=== PATIENT | female | born 1975 | race Caucasian/White ===

== ENCOUNTER → 2020-01-20 13:46 | Outpatient (CLI) | payer OTHER, SELFPAY ==
--- NOTE | ~2020-01-20 | MM_ITS ---
EXAMINATION: MM screening liliana BI w eduin HISTORY: Screening mammogram TECHNIQUE: Craniocaudal and mediolateral oblique 3-D tomosynthesis images were obtained and synthetic 2-D images were generated. CAD analysis was submitted and interpreted. COMPARISON: 12/27/2018, 12/07/2017 bilateral digital screening mammogram examinations 10/09/2016 diagnostic left digital mammogram and limited left breast ultrasound 09/25/2016, 09/19/2015 bilateral digital screening mammogram examinations. BREAST PARENCHYMAL COMPOSITION: There are scattered areas of fibroglandular density. FINDINGS: There is an approximately 5 x 8.7 mm asymmetric opacity in the lower left breast posteriorl y on screening MLO view. Diagnostic left mammogram is recommended, with ultrasound if required. Otherwise there is no evidence of suspicious mass, calcification, or architectural distortion to sugg est malignancy in either breast. There has been no suspicious interval change. IMPRESSION: 1. 5 x 8.7 mm asymmetry in the posterior lower left breast on screening MLO view 2. Diagnostic left mammogram is recommended, with ultrasound if required Reviewed, dictated and finalized at location A. ENT OFFICE REP IMPRESSION: 1. 5 x 8.7 mm asymmetry in the posterior lower left breast on screening MLO vie w 2. Diagnostic left mammogram is recommended, with ultrasound if required
== END ==
PROVIDERS: PCP Family Medicine; Visit Provider Nurse Practitioner
DX: Z12.31 Encounter for screening mammogram for malignant neoplasm of breast (principal); R92.8 Other abnormal and inconclusive findings on diagnostic imaging of breast
CPT/HCPCS: 77063; 77067

== ENCOUNTER → 2020-02-14 08:43 | Outpatient (CLI) | payer OTHER, SELFPAY ==
--- NOTE | ~2020-02-14 | MMUS_ITS ---
EXAMINATION: MM diagnostic mammo unilat LT, US breast LT limited HISTORY: Follow-up left breast asymmetry TECHNIQUE: Additional 3-D tomosynthesis images of the left breast were performed and synthetic 2-D im ages were generated. CAD analysis was submitted and interpreted. High resolution left breast ultrasou nd was performed. COMPARISON: Comparison to multiple prior studies sequentially, with oldest reviewed study dated 04/2015. BREAST PARENCHYMAL COMPOSITION: The breasts are heterogenously dense, which may obscure small masses. FINDINGS: MAMMOGRAPHIC FINDINGS: Focal asymmetry inferiorly in the left breast is persistent, although less dense with spot compressio n views. No discrete mass, architectural distortion or cluster of calcifications. ULTRASOUND: Limited left breast ultrasound: 9:00, 9 cm from the nipple, there is a 4 mm cyst. No other discrete s olid or cystic mass. IMPRESSION: 1. Probable benign findings of the left breast. 2. Recommend 6 month follow-up diagnostic left mammogram and ultrasound recommended BI-RADS category 3, probably benign findings. Reviewed, dictated and finalized at location A. ILER IMPRESSION: 1. Probable benign findings of the left breast. 2. Recommend 6 month follow-up diagnostic left mammogram and ultrasound recomme nded BI-RADS category 3, probably benign findings.
== END ==
PROVIDERS: PCP Family Medicine; Visit Provider Obstetrics & Gynecology Gynecology
DX: R92.8 Other abnormal and inconclusive findings on diagnostic imaging of breast (principal)
CPT/HCPCS: 76642; 77065

== ENCOUNTER → 2020-08-16 09:08 | Outpatient (CLI) | payer OTHER, SELFPAY ==
--- NOTE | ~2020-08-16 | MM_ITS ---
EXAMINATION: MM diagnostic liliana LT w eduin HISTORY: Follow-up left breast asymmetry TECHNIQUE: Additional 3-D tomosynthesis images of the left breast were performed and synthetic 2-D im ages were generated. CAD analysis was submitted and interpreted. COMPARISON: Comparison to multiple prior studies sequentially, with oldest reviewed study dated 09/25. BREAST PARENCHYMAL COMPOSITION: Breast composed of scattered areas of fibroglandular density. FINDINGS: No suspicious masses, calcifications or architectural distortion in the left breast to sugg est malignancy. Left breast asymmetry inferiorly is unchanged. IMPRESSION: 1. No mammographic evidence for malignancy in the left breast. 2. Routine yearly screening mammogram and regular clinical breast examination are recommended. BI-RADS Category 2: Benign finding(s). Reviewed, dictated and finalized at location A. IMPRESSION: 1. No mammographic evidence for malignancy in the left breast. 2. Routine yearly screening mammogram and regular clinical breast examination a re recommended. BI-RADS Category 2: Benign finding(s).
== END ==
PROVIDERS: PCP Family Medicine; Visit Provider Obstetrics & Gynecology Gynecology
DX: R92.8 Other abnormal and inconclusive findings on diagnostic imaging of breast (principal)
CPT/HCPCS: 77061; 77065; G0279

== ENCOUNTER → 2021-04-13 09:14 | Outpatient (CLI) | payer OTHER, SELFPAY ==
--- NOTE | ~2021-04-13 | US_ITS ---
EXAMINATION: US thyroid EXAM DATE: 04/13/2021 09:37 INDICATION: Thyroid nodule. TECHNIQUE: Multiple grayscale and Doppler images of the thyroid were obtained (by a technologist who performed the scan) and subsequently reviewed. Individual nodules and recommendations may be reporte d in accordance with TI-RADS system as designated by the 2017 ACR White Paper TI-RADS committee. The re is no prior study for comparison. FINDINGS: The right thyroid lobe measures 4.9 x 2.0 x 1.9 cm, the left measuring 4.3 x 1.9 x 1.9 cm. These dime nsions are mildly enlarged. Mildly heterogeneous thyroid echogenicity with expected amount of vascula rity. There is a right thyroid lobe hypervascular nodule measuring 1.1 x 0.8 x 0.8 cm, solid (2 points), hy poechoic (2 points), wider than tall, smooth well defined margin, without echogenic foci, category TR 4 for this nodule. One-year follow-up for this category/size indicated. IMPRESSION: 1. Mild terminale. 2. Right thyroid lobe nodule; one-year follow-up ultrasound recommended. Reviewed, dictated and finalized at location A. R FISHER
== END ==
PROVIDERS: Visit Provider Nurse Practitioner
DX: E04.1 Nontoxic single thyroid nodule (principal)
CPT/HCPCS: 76536

== ENCOUNTER → 2021-06-11 15:08 | Outpatient (CLI) | payer OTHER, SELFPAY ==
--- NOTE | ~2021-06-11 | MM_ITS ---
EXAMINATION: MM screening liliana BI w eduin HISTORY: Screening TECHNIQUE: Craniocaudal and mediolateral oblique 3-D tomosynthesis images were obtained and synthetic 2-D images were generated. CAD analysis was submitted and interpreted. COMPARISON: Comparison to multiple prior studies sequentially, with oldest reviewed study dated 11/17. BREAST PARENCHYMAL COMPOSITION: There are scattered areas of fibroglandular density. FINDINGS: There are developing nodular asymmetries laterally in the right breast on CC view. The left breast is stable without evidence for malignancy. IMPRESSION: 1. Developing nodular asymmetries laterally in the right breast on CC view only. 2. Additional mammographic views and possible breast ultrasound are recommended. BI-RADS Category 0: Incomplete: Needs additional imaging evaluation. Reviewed, dictated and finalized at location A. IMPRESSION: 1. Developing nodular asymmetries laterally in the right breast on CC view only . 2. Additional mammographic views and possible breast ultrasound are recommended . BI-RADS Category 0: Incomplete: Needs additional imaging evaluation.
== END ==
PROVIDERS: PCP Family Medicine; Visit Provider Nurse Practitioner
DX: Z12.31 Encounter for screening mammogram for malignant neoplasm of breast (principal); R92.8 Other abnormal and inconclusive findings on diagnostic imaging of breast
CPT/HCPCS: 77063; 77067

== ENCOUNTER → 2021-06-25 09:04 | Outpatient (CLI) | payer OTHER, SELFPAY ==
--- NOTE | ~2021-06-25 | MMUS_ITS ---
EXAMINATION: MM diagnostic liliana RT w eduin, US breast RT limited HISTORY: Follow-up right breast asymmetry TECHNIQUE: Additional 3-D tomosynthesis images of the right breast were performed and synthetic 2-D i mages were generated. CAD analysis was submitted and interpreted. High resolution Limited right breas t ultrasound was performed. COMPARISON: Comparison to multiple prior studies sequentially, with oldest reviewed study dated 11/17. BREAST PARENCHYMAL COMPOSITION: Breast composed of scattered areas of fibroglandular density FINDINGS: MAMMOGRAPHIC FINDINGS: There are no suspicious masses, calcifications or architectural distortion in the right breast to sug gest malignancy. ULTRASOUND: Limited right breast ultrasound: Normal heterogeneous echotexture without focal solid or cystic mass. IMPRESSION: 1. No evidence for malignancy in the right breast. 2. Routine yearly screening mammogram and regular clinical breast examination are recommended. BI-RADS Category 1: Negative Reviewed, dictated and finalized at location A. IMPRESSION: 1. No evidence for malignancy in the right breast. 2. Routine yearly screening mammogram and regular clinical breast examination a re recommended. BI-RADS Category 1: Negative
== END ==
PROVIDERS: PCP Family Medicine; Visit Provider Obstetrics & Gynecology Gynecology
DX: R92.8 Other abnormal and inconclusive findings on diagnostic imaging of breast (principal)
CPT/HCPCS: 76642; 77061; 77065; G0279

== ENCOUNTER → 2022-10-27 13:15 | Outpatient (CLI) | payer OTHER, SELFPAY ==
--- NOTE | ~2022-10-27 | US_ITS ---
EXAMINATION: US thyroid DATE: 10/27/2022 13:35 INDICATION: Thyroid nodule. TECHNIQUE: Multiple ultrasound images of the thyroid were obtained. COMPARISON: Ultrasound 04/13/2021 FINDINGS: The right thyroid lobe measures 5.8 x 1.9 x 2.2 cm. The left thyroid lobe measures 4.7 x 1.8 x 2.1 c m. In the right thyroid lobe, there is a 12 mm solid, hypoechoic, wider than tall nodule with smooth margin without echogenic foci (TI-RADS TR4), stable from 04/13/21. In the right thyroid lobe, there i s a 7 mm solid, hypoechoic, wider than tall nodule with smooth margin without echogenic foci (TR4). IMPRESSION: 1. Thyroid nodules. Thyroid ultrasound is recommended in one year. Reviewed, dictated and finalized at location A.
--- NOTE | ~2022-10-27 | MM_ITS ---
EXAMINATION: MM screening liliana BI w eduin HISTORY: Screening mammogram TECHNIQUE: Craniocaudal and mediolateral oblique 3-D tomosynthesis images were obtained and synthetic 2-D images were generated. Bilateral rotated lateral CC views. CAD analysis was submitted and interp reted. COMPARISON: 06/25/2021 diagnostic right mammogram and limited right breast ultrasound examination, rep orted negative 06/11/2021 bilateral screening mammogram examination 08/16/2020 diagnostic left mammogram 02/14/2020 diagnostic left mammogram and limited left breast ultrasound 01/20/2020, 12/27/2018 bilateral screening mammogram examinations BREAST PARENCHYMAL COMPOSITION: There are scattered areas of fibroglandular density. FINDINGS: There is no evidence of suspicious mass, calcification, or architectural distortion to sugg est malignancy in either breast. There has been no suspicious interval change. IMPRESSION: 1. No mammographic evidence of malignancy. 2. Recommend routine screening mammography in one year. BI-RADS Category 1: Negative Reviewed, dictated and finalized at location A.
== END ==
PROVIDERS: PCP Nurse Practitioner; Visit Provider Nurse Practitioner
DX: Z12.31 Encounter for screening mammogram for malignant neoplasm of breast (principal); E04.2 Nontoxic multinodular goiter
CPT/HCPCS: 76536; 77063; 77067

== ENCOUNTER 2023-08-12 13:30 | Outpatient (CLI) | payer OTHER, SELFPAY ==
--- NOTE | ~2023-08-12 | US_ITS ---
US pelvic complete Ordering provider: Ophelia Chandra, MASTER CONTROL OPERATOR History: . ABNORMAL UTERINE BLEEDING . Comparison: None. Technique: Transabdominal and endovaginal ultrasound of the pelvis (Doppler ultrasound interrogation techniques used as needed for this exam.) FINDINGS: CERVIX: Normal. UTERUS: Measures 13.4x 5.3x 7.7 cm in length which is within normal limits and is anteverted. Hypoec hoic area measures 1.7 x 1.7 x 1.2 cm. Calcified area also seen measuring 1.5 x 1.8 x 1.5 cm. ENDOMETRIUM: Normal in thickness measuring 10 mm. ( CUL DE SAC: No free fluid. RIGHT OVARY: Normal in size measuring 3.6x 2.2x 2.8 cm. Normal echotexture. Doppler vascular flow pre sent. LEFT OVARY: Normal in size measuring 2.7x 1.4x 3 cm. Normal echotexture. Doppler vascular flow presen t. ADNEXA: Normal. No mass. IMPRESSION: Hypoechoic and calcified areas in the uterus most likely fibroids. Otherwise, normal pelvic ultrasou nd. Reviewed, dictated and finalized at location A. IMPRESSION: Hypoechoic and calcified areas in the uterus most likely fibroids. Otherwise, normal pelvic ultrasound.
--- NOTE | ~2023-08-12 | US_ITS ---
EXAMINATION: US thyroid DATE: 08/12/2023 14:12 INDICATION: Thyroid nodule. TECHNIQUE: Multiple ultrasound images of the thyroid were obtained. COMPARISON: Ultrasound 10/27/2022, 04/13/2021 FINDINGS: The right thyroid lobe measures 4.7 x 2.2 x 2.4 cm. The left thyroid lobe measures 4.5 x 1.7 x 1.9 c m. In the right thyroid lobe, there is a 12 mm solid, hypoechoic, wider than tall nodule with smooth margin without echogenic foci (TI-RADS TR4), stable from 04/13/21. In the right thyroid lobe, there i s a 5 mm solid, hypoechoic, wider than tall nodule with smooth margins without echogenic foci (TR4). IMPRESSION: 1. Multinodular goiter. Thyroid ultrasound is recommended in one year. Reviewed, dictated and finalized at location A.
== END 2023-08-12 13:31 ==
PROVIDERS: PCP Nurse Practitioner; Visit Provider Nurse Practitioner
DX: N93.8 Other specified abnormal uterine and vaginal bleeding (principal); E04.2 Nontoxic multinodular goiter
CPT/HCPCS: 76536; 76856

== ENCOUNTER 2023-12-30 10:36 | Outpatient (CLI) | payer OTHER, SELFPAY ==
--- NOTE | ~2023-12-30 | MM_ITS ---
EXAMINATION: MM screening [facility] BI w eduin HISTORY: Screening mammogram TECHNIQUE: Craniocaudal and mediolateral oblique 3-D tomosynthesis images were obtained and synthetic 2-D images were generated. CAD analysis was submitted and interpreted. COMPARISON: 10/27/2022, 06/11/2021, 08/16/2020 BREAST PARENCHYMAL COMPOSITION:Not Dense. There are scattered areas of fibroglandular density. FINDINGS: No suspicious mass, calcification, or architectural distortion are identified in either shalom ast to suggest malignancy. There has been no suspicious interval change. IMPRESSION: No mammographic evidence of malignancy. Recommend routine screening mammography in one year. BI-RADS Category 1: Negative Reviewed, dictated and finalized at location . [facility]
== END 2023-12-30 10:37 | disposition home or self-care (01) ==
PROVIDERS: PCP Family Medicine; Visit Provider Nurse Practitioner
DX: Z12.31 Encounter for screening mammogram for malignant neoplasm of breast (principal)
CPT/HCPCS: 77063; 77067

== ENCOUNTER 2024-02-19 03:17 | Emergency (ER) | payer OTHER, SELFPAY ==
[2024-02-19] VITALS (15 sets, daily range): BP systolic 106–158; BP diastolic 76–105; PULSE 64–91; RESP 15–20; TEMP 36.6–36.9; O2SAT 96–100
--- NOTE | ~2024-02-19 | XR_ITS ---
EXAMINATION: XR chest 1V portable DATE: 02/19/2024 09:27 INDICATION: Epigastric abdominal pain. TECHNIQUE: A single frontal view of the chest was obtained. COMPARISON: None. FINDINGS: There is no pneumonia, pleural effusion, or pneumothorax. The heart size is normal. IMPRESSION: 1. No acute cardiopulmonary disease. Reviewed, dictated and finalized at location A. GLASS TECHNICIAN
--- NOTE | ~2024-02-19 | CT_ITS ---
EXAMINATION: CT abdomen pelvis w con DATE: 02/19/2024 11:43 INDICATION: Right upper quadrant TECHNIQUE: Computed tomography (CT) of the abdomen and pelvis was performed with 100 mL Omnipaque-350 intravenous contrast. Automated exposure control and iterative reconstruction technique were employe d. The dose-length product was 1419.21 mGy-cm. COMPARISON: Ultrasound dated 02/19/2024 FINDINGS: Minimal dependent atelectasis in the left lower lobe. Heart size is normal. No pericardial or pleural effusion. Liver is normal with no intrahepatic biliary ductal dilation. There are multiple calcified gallstones in the dependent aspect of the otherwise normal-appearing gallbladder. Common bile duct m easures 6 mm maximal diameter which is at the upper limits of normal. No distal obstructing mass or c alcified gallstone. Of note some low-density gallstones can be occult on CT. 7 mm low-attenuation spl enic cyst. Pancreas and bilateral adrenal glands are normal. 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 Bowels including the appendix are normal. Bladder is n ormal. Fibroid uterus, which is calcified. Likely tubal ligation rings along side the bilateral arabella l ovaries. No free intraperitoneal gas or fluid. No pathologically enlarged abdominal or pelvic lymph adenopathy. 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 IMPRESSION: 1. Cholelithiasis and borderline dilated common bile duct which measures up to 6 monitor. Provided hi story of elevated liver enzymes would consider for more sensitive assessment for occult choledocholit hiasis. 2. Fibroid uterus. Reviewed, dictated and finalized at location B. OR OPERATOR IMPRESSION: 1. Cholelithiasis and borderline dilated common bile duct which measures up to 6 monitor. Provided history of elevated liver enzymes would consider for more s ensitive assessment for occult choledocholithiasis. 2. Fibroid uterus.
--- NOTE | ~2024-02-19 | US_ITS ---
EXAMINATION: US abdomen limited DATE: 02/19/2024 11:38 INDICATION: Right upper quadrant and epigastric pain. Elevated liver enzymes. TECHNIQUE: Multiple grayscale and Doppler ultrasound images of the abdomen were obtained. COMPARISON: CT abdomen and pelvis 02/19/2024 FINDINGS: The visualized portions of the head, body, and tail of the pancreas are normal. The liver is normal w ithout focal lesion. There is antegrade flow in main portal vein. The gallbladder is normal in size a nd contains gallstones. No gallbladder wall thickening or sonographic Noble sign. The common duct is normal and measures 6 mm. IMPRESSION: 1. Cholelithiasis. No evidence of acute cholecystitis. Reviewed, dictated and finalized at location B. R AND DELIVERY REGISTERED NURSE
--- NOTE | 2024-02-19 08:32 | ECG_ITS ---
Test Date: 2024-02-19 08:56:02 Measurements Intervals [place] Rate: 79 P: 32 FL: 172 QRS: 59 QRSD: 112 T: 2 QT: 374 QTc: 429 Interpretive Statements SINUS RHYTHM MODERATE INTRAVENTRICULAR CONDUCTION DELAY [110+ ms QRS DURATION] No previous ECG available for comparison Electronically Signed On 02-22-2024 15:01:12 SWITCHING OPERATOR by Mike Pedersen M.D.
--- NOTE | 2024-02-19 09:04 | ED.ABDPAIN ---
HPI - Abdominal Pain General Chief Complaint: Abdominal Pain Stated Complaint: abd pain Time Seen by Provider: 02/19/24 08:17 Source: patient Mode of arrival: ambulatory Limitations: no limitations History of Present Illness HPI narrative: Patient presents with epigastric pain started at 6:30 a.m. last night and has been progressively worsening. She states that radiates to her back and into her right upper quadrant. She tried Pepto-Bismol twice. No sick contacts at home. She has been nauseated without vomiting. She states she has had similar pain before but not quite like this and no official diagnosis. Does not follow with a barrel cutter. Has never undergone an EGD. No fever but she has been feeling chilled. Drinks alcohol approximately 1 time per month. No prior abdominal surgeries. Does not use marijuana. No diarrhea. Her last bowel movement was yesterday afternoon and she denies being constipated. No bloody stool. She does continue to min straight and her last menstrual period was in January 2024. Related Data Allergies Allergy/AdvReac Type Severity Reaction Status Date / Time No Known Allergies Allergy Verified 01/29/24 09:23 [facility] Past Medical History Medical History Body mass index (BMI) of 40.1 to 44.9 in adult Family History Family History Mother Hypertension Alzheimer's disease Thyroid activity decreased Sibling Hypertension Elevated liver enzymes Father Malignant neoplasm of prostate Other Family history of heart disease in male family member before age 55 Social History Social History Smoking status: Never smoker Second hand tobacco smoke exposure: Yes Alcohol intake: current Drinks per week: 1 Substance use: never Substance use type: does not use Do You Feel Safe in your Home?: Yes Lack of Transportation: No Lack of Food: Never True Current Housing: I Have Housing Concerned About Future Housing: No Difficulty Paying Gas/Electric Bills: No Difficulty Paying for Meds: No Currently Unemployed: No Education: Master's Degree or Higher Difficulty w/ Childcare or Family Care: No Living arrangements: with family Additional living arrangements comments: and 4 children Occupation/Education: occupation 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 Gender identity (if verbalized by the patient): Female Exam Narrative: GENERAL: Well-appearing, well-nourished, and in no acute distress. HEAD: Normocephalic, atraumatic. EYES: Non injected, non icteric ENT: Nares clear, no rhinorrhea or epistaxis. NECK: Supple. CHEST: Speaking in full sentences. No respiratory distress. HEART: Regular rate and rhythm. . ABDOMEN: Soft, nondistended. No tenderness to palpation in all 4 quadrants and including the epigastrium. Noble sign negative. No rigidity or guarding. Not peritoneal. EXTREMITIES: Normal range of motion. No lower extremity edema. SKIN: Warm, dry, no rash. NEURO: No focal deficits. Alert and oriented x3. PSYCH: Normal mood and affect. Course Vital Signs Vital signs: Vital Signs Temperature 98.2 F 02/19/24 03:22 Pulse Rate 91 02/19/24 03:22 Respiratory Rate 20 02/19/24 03:22 Blood Pressure 158/95 H 02/19/24 03:22 Pulse Oximetry 99 02/19/24 03:22 Oxygen Delivery Room Air 02/19/24 03:22 Temperature 98.4 F 02/19/24 19:59 Pulse Rate 64 02/19/24 19:59 Respiratory Rate 16 02/19/24 19:59 Blood Pressure 119/76 02/19/24 19:59 Pulse Oximetry 100 02/19/24 19:59 Oxygen Delivery Room Air 02/19/24 03:22 MDM - Abdominal Pain MDM Narrative Medical decision making narrative: Patient presents with epigastric pain beginning at 6:30 a.m. last night and radiating to her back and associated with nausea. In the emergency department she is afebrile with vital signs that show hypertension. Patient is reassessed at 10:00 a.m. and states that her pain and nausea are much improved. Not in need of another dose of anything at this time. Lipase normal. Patient is markedly elevated AST and ALT. INR normal. Patient reassessed at approximately 11:45 a.m. she states pain is tolerable and markedly improved from how it was although still present. Patient reassessed approximately 1245 and she states the pain is recurring. Patient is informed on her diagnosis and the need for an ERCP. We do not have GI at our facility today; briefly discussed in passing with commercial or institutional cleaner surgeon but he concurs ERCP with GI is the standard of care. She states she has never received care anywhere else. Attempted to contact [facility] in [place]. Placed on wait list for there as well as [place] but will not be able to talk with a provider until a bed is available. Discussed with [facility] who will look at possibilities (eg [facility]). Spoke with Dr Celso persaud at [facility] who accepts patient at 1400 pending Med surg bed availability. Scheduled PRN opiate medication. Patient still pending a bed at the end of my shift. It does appear that GI is available at our facility commercial or institutional cleaner tomorrow morning but unsure if this particular provider performs ERCP thus patient will remain in the ED until able to contact them after 7am on 02/20/24 to discuss if admission at [place] is possible. Differential Diagnosis Differential diagnosis: Likely abdominal pain, constipation, diverticulitis, pancreatitis and other (spectrum of biliary pathology) Lab Data Attestation: I reviewed the patient's lab results. 02/19/24 09:23 02/19/24 10:09 Labs: Lab Results 02/19/24 02/19/24 02/19/24 Range/Units 09:18 09:23 09:45 WBC 6.7 (4.5-10.0) K/mm3 RBC 4.45 (4.2-5.4) M/mm3 Hgb 13.5 (12.0-15.0) g/dL Hct 39.8 (37.0-47.0) % MCV 89.4 (80-100) fl MCH 30.3 (26-34) pg MCHC 33.9 (32-36) g/dl RDW 12.3 (11.5-14.5) % Plt Count 426 H (150-375) k/mm3 MPV 9.2 (7.4-10.4) fl Immature Gran % (Auto) 0.3 (0-0.5) % Neut % (Auto) 70.6 (45.5-73.1) % Lymph % (Auto) 21.8 (18.3-44.2) % Lucas % (Auto) 6.8 (2.6-8.5) % Eos % (Auto) 0.4 (0-4.4) % Baso % (Auto) 0.1 L (0.2-1.2) % Lymph # (Auto) 1.47 (0.9-3.2) K/mm3 Lucas # (Auto) 0.5 (0.1-0.6) K/mm3 Eos # (Auto) 0.0 (0-0.3) K/mm3 Baso # (Auto) 0.0 (0.0-0.1) K/mm3 Abs Immat Gran (auto) 0.02 (0.00-0.031) K/mm3 Absolute Neuts (auto) 4.8 (1.3-6.7) K/mm3 Absolute Nucleated RBC 0.000 (0.0-0.012) K/mm3 Nucleated RBC % 0.0 (0.0-0.2) % PT (11.1-14.7) Seconds INR APTT (22.3-36.8) Seconds Sodium (137-145) mmol/L Potassium (3.4-5.0) mmol/L Chloride (98-107) mmol/L Carbon Dioxide (22-30) mmol/L Anion Gap (4-12) mmol/L BUN (7-17) mg/dL Creatinine (0.7-1.0) mg/dL Estim Creat Clear Calc ml/min Estimated GFR (59 - ) Glucose (65-110) mg/dL Calcium (8.4-10.2) mg/dL Magnesium (1.6-2.3) mg/dL Total Bilirubin (0.2-1.3) mg/dL AST (14-36) U/L ALT (6-35) U/L Alkaline Phosphatase (38-126) U/L Troponin I (0.000-0.034) ng/mL Total Protein (6.3-8.2) g/dL Albumin (3.5-5.1) g/dL Lipase (23-300) U/L Urine Color (Yellow) Urine Appearance (Clear) Urine pH (5.0-9.0) Ur Specific [place] (1.001-1.035) Urine Protein (Negative) mg/dL Urine Glucose (UA) (Negative) mg/dL Urine Ketones (Negative) mg/dL Ur Blood (Man) (Negative) Urine Nitrate (Negative) Urine Bilirubin (Negative) Urine Urobilinogen (<2.0) mg/dL Leukocyte Esterase Rfl (Negative) CECI/UL Urine RBC (0-2) /hpf Urine WBC (0-3) /hpf Ur Squamous Epith Cells (Few) /hpf Urine Bacteria /hpf Urine Casts POC Urine HCG, Qual Negative (Negative) Acetaminophen (10-30) ug/mL Influenza A (RT-PCR) Negative (Negative) Influenza B (RT-PCR) Negative (Negative) RSV (RT-PCR) Negative (Negative) SARS-CoV-2 RNA (RT-PCR) Negative (Negative) 02/19/24 02/19/24 02/19/24 Range/Units 09:46 10:09 11:12 WBC (4.5-10.0) K/mm3 RBC (4.2-5.4) M/mm3 Hgb (12.0-15.0) g/dL Hct (37.0-47.0) % MCV (80-100) fl MCH (26-34) pg MCHC (32-36) g/dl RDW (11.5-14.5) % Plt Count (150-375) k/mm3 MPV (7.4-10.4) fl Immature Gran % (Auto) (0-0.5) % Neut % (Auto) (45.5-73.1) % Lymph % (Auto) (18.3-44.2) % Lucas % (Auto) (2.6-8.5) % Eos % (Auto) (0-4.4) % Baso % (Auto) (0.2-1.2) % Lymph # (Auto) (0.9-3.2) K/mm3 Lucas # (Auto) (0.1-0.6) K/mm3 Eos # (Auto) (0-0.3) K/mm3 Baso # (Auto) (0.0-0.1) K/mm3 Abs Immat Gran (auto) (0.00-0.031) K/mm3 Absolute Neuts (auto) (1.3-6.7) K/mm3 Absolute Nucleated RBC (0.0-0.012) K/mm3 Nucleated RBC % (0.0-0.2) % PT 13.7 (11.1-14.7) Seconds INR 1.0 APTT 28.6 (22.3-36.8) Seconds Sodium 138 (137-145) mmol/L Potassium 3.5 (3.4-5.0) mmol/L Chloride 108 H (98-107) mmol/L Carbon Dioxide 27 (22-30) mmol/L Anion Gap 3 L (4-12) mmol/L BUN 11 (7-17) mg/dL Creatinine 0.50 L (0.7-1.0) mg/dL Estim Creat Clear Calc 149 ml/min Estimated GFR > 60 (59 - ) Glucose 105 (65-110) mg/dL Calcium 8.9 (8.4-10.2) mg/dL Magnesium 2.1 (1.6-2.3) mg/dL Total Bilirubin 1.8 H (0.2-1.3) mg/dL AST 930 H (14-36) U/L ALT 698 H (6-35) U/L Alkaline Phosphatase 121 (38-126) U/L Troponin I < 0.012 (0.000-0.034) ng/mL Total Protein 8.0 (6.3-8.2) g/dL Albumin 4.4 (3.5-5.1) g/dL Lipase 115 (23-300) U/L Urine Color Dark yellow (Yellow) Urine Appearance Clear (Clear) Urine pH 8.0 (5.0-9.0) Ur Specific [place] 1.022 (1.001-1.035) Urine Protein 1+ H (Negative) mg/dL Urine Glucose (UA) Negative (Negative) mg/dL Urine Ketones Trace H (Negative) mg/dL Ur Blood (Man) Negative (Negative) Urine Nitrate Negative (Negative) Urine Bilirubin 1+ H (Negative) Urine Urobilinogen 1.0 (<2.0) mg/dL Leukocyte Esterase Rfl Negative (Negative) CECI/UL Urine RBC 0-2 (0-2) /hpf Urine WBC 0-5 (0-3) /hpf Ur Squamous Epith Cells None seen (Few) /hpf Urine Bacteria None seen /hpf Urine Casts 0-2 POC Urine HCG, Qual (Negative) Acetaminophen < 10 L (10-30) ug/mL Influenza A (RT-PCR) (Negative) Influenza B (RT-PCR) (Negative) RSV (RT-PCR) (Negative) SARS-CoV-2 RNA (RT-PCR) (Negative) Imaging Data Radiologist's impression: ITS Impressions Chest X-Ray 02/19/24 09:29 IMPRESSION: 1. No acute cardiopulmonary disease. Abdomen Ultrasound 02/19/24 11:41 IMPRESSION: 1. Cholelithiasis. No evidence of acute cholecystitis. Abdomen/Pelvis CT 02/19/24 11:44 IMPRESSION: 1. Cholelithiasis and borderline dilated common bile duct which measures up to 6 monitor. Provided history of elevated liver enzymes would consider for more sensitive assessment for occult choledocholithiasis. 2. Fibroid uterus. ECG Data EKG #1: Attestation: I personally reviewed and interpreted this ECG as follows: ECG completion date: 02/19/24 ECG completion time: 08:56 Prior ECG tracings: not available for review (No prior for comparison) Interpretation: Normal sinus rhythm at a rate of 79 beats per minute. WI interval 172. QRS 112. QT/QTC 374/408. Good R-wave progression across the precordial leads. T-wave inversions in lead 3 and AVF but upright in normal in contiguous inferior lead 2. Also T-wave inversion in V3 but normal in contiguous V4. Moderate intraventricular conduction delay. Discharge Plan Discharge Clinical Impression: Epigastric abdominal pain, Thrombocytosis, Elevated SGOT (AST), Elevated ALT measurement, Fibroid uterus, Choledocholithiasis, Cholelithiasis Patient Disposition: Acute Care Hospital Condition: Stable Instructions: Antibiotic Form Patient Language: Khmer Follow-up/Referrals: Jonel Wilkins MD [Primary Care Provider] -
[2024-02-19] MEDS: ONDANSETRON INJ 4 MG/2 ML VIAL IV PUSH ×2 (09:24→21:06)
[2024-02-19] MEDS: MORPHINE SULFATE (*CRX) 4 MG/ML INJ IV PUSH ×2 (09:25→13:10)
[2024-02-19 09:29] LABS: Basophils Percent Auto 0.1 % (0.2-1.2); Eosinophils Percent Auto 0.4 % (0-4.4); Hematocrit 39.8 % (37.0-47.0); Hemoglobin 13.5 g/dL (12.0-15.0); Immature Granulocyte Absolute 0.02 K/mm3 (0.00-0.031); Immature Granulocyte Percent A 0.3 % (0-0.5); Lymphocytes Absolute Auto 1.47 K/mm3 (0.9-3.2); Lymphocytes Percent Auto 21.8 % (18.3-44.2); Mean Corpuscular HGB Conc 33.9 g/dl (32-36); Mean Corpuscular Hemoglobin 30.3 pg (26-34); Mean Corpuscular Volume 89.4 fl (80-100); Mean Platelet Volume 9.2 fl (7.4-10.4); Monocytes Absolute Auto 0.5 K/mm3 (0.1-0.6); Monocytes Percent Auto 6.8 % (2.6-8.5); Neutrophils Absolute Auto 4.8 K/mm3 (1.3-6.7); Neutrophils Percent Auto 70.6 % (45.5-73.1); Platelet Count Result 426 k/mm3 (150-375); Red Blood Count 4.45 M/mm3 (4.2-5.4); Red Cell Distribution Width 12.3 % (11.5-14.5); White Blood Count 6.7 K/mm3 (4.5-10.0)
[2024-02-19 09:51] LABS: BEDSIDEPREGUCG Negative (Negative)
[2024-02-19 09:59] LABS: Add Urine Microscopic? YES; Appearance Urine Clear (Clear); Bacteria Urine None Seen /hpf; Bilirubin Urine 1+ (Negative); Blood Urine Negative (Negative); Color Urine Dark Yellow (Yellow); Glucose Urine UA Negative (Negative); Ketones Urine Trace mg/dL (Negative); Leukocyte Esterase Ur Negative LEU/UL (Negative); Nitrate Urine Negative (Negative); Non Pathogenic Casts 0-2; Protein Urine 1+ mg/dL (Negative); RBC Urine 0-2 /hpf (0-2); Specific Grav Ur 1.022 (1.001-1.035); Squamous Epithelial Cell Urine None Seen /hpf (Few); WBC Urine 0-5 /hpf (0-3)
[2024-02-19 10:07] LABS: Influenza A QL RT-PCR Negative (Negative); Influenza B QL RT-PCR Negative (Negative); RSV RNA, RT-PCR Negative (Negative); SARS-CoV-2 RNA PCR Negative (Negative)
[2024-02-19 10:35] LABS: Prothrombin Time 13.7 Seconds (11.1-14.7)
[2024-02-19 10:36] LABS: Partial Thromboplastin Time 28.6 Seconds (22.3-36.8)
[2024-02-19 10:38] LABS: Alanine Aminotransferase 698 U/L (6-35); Albumin Level 4.4 g/dL (3.5-5.1); Alkaline Phosphatase 121 U/L (38-126); Anion Gap 3 mmol/L (4-12); Bilirubin,Total 1.8 mg/dL (0.2-1.3); Blood Urea Nitrogen 11 mg/dL (7-17); Calcium 8.9 mg/dL (8.4-10.2); Carbon Dioxide 27 mmol/L (22-30); Chloride 108 mmol/L (98-107); Estimated CRCL calculation 149 ml/min; Estimated Glomerular Filt Rate > 60; Glucose 105 mg/dL (65-110); Lipase 115 U/L (23-300); Potassium 3.5 mmol/L (3.4-5.0); Sodium 138 mmol/L (137-145)
[2024-02-19 10:39] LABS: Aspartate Amino Transferase 930 U/L (14-36)
[2024-02-19 10:43] LABS: Troponin I < 0.012 ng/mL (0.000-0.034)
[2024-02-19 11:31] LABS: Acetaminophen < 10 ug/mL (10-30)
[2024-02-19] MEDS: ACETAMINOPHEN 500 MG TABLET 1000 MG PO (12:03)
--- NOTE | 2024-02-19 13:11 | PC.NURSE ---
Laboratory called about add on Magnesium
[2024-02-19 13:29] LABS: Magnesium 2.1 mg/dL (1.6-2.3)
--- NOTE | 2024-02-19 14:48 | PC.NURSE ---
Patient has been accepted at [facility] pending a bed, on [facility] and [facility] waitlist.
--- NOTE | 2024-02-19 20:01 | PC.NURSE ---
Per patient she does not take any prescription medication daily and only takes OTC vitamins.
--- NOTE | 2024-02-19 21:08 | PC.NURSE ---
Patient request something for N/V. Notified EDP Dr. Sun who VRBO 4mg IVP Zofran.
--- NOTE | 2024-02-19 22:20 | PC.NURSE ---
[facility] transfer center called to advise that patient has a bed ([id number])
--- NOTE | 2024-02-19 22:38 | PC.NURSE ---
Per community outreach worker EMS arrival for transfer will be 0200 02/20/2024
--- NOTE | 2024-02-19 22:42 | PC.NURSE ---
Notified patient of anticipated EMS ETA.
--- NOTE | 2024-02-20 00:51 | PC.NURSE ---
EMS arrives for patient
--- OUTSIDE RECORDS SUMMARY | 2024-02-26 19:22 | XMS_ITS | Referral Summary ---
Author Organization [facility] Address [address] [place] [address] Care Team Providers Care Pressing Department Supervisor Name Role Phone Unavailable Primary Care Provider Unavailabl e Source Comments [facility],non-owned Affiliates and Associated Physician Practices is amultiple site organization consisting of ambulatory clinics and hospital sitesin [place] and [place]. This disclosure is being madepursuant to the Care Everywhere program and may not contain all information available regarding this patient. Last updated 17.[facility] Social History Tobacco Use Types Packs/Day Years Used Date Smoking Tobacco: Never Assessed Sex and Gender Information Value Date Recorded Sex Assigned at Not on file Gender Identity Not on file Sexual Orientation Not on file Plan of Treatment Not on file
--- OUTSIDE RECORDS SUMMARY | 2024-02-26 19:22 | XMS_ITS | Encounter Summary ---
Author Organization [facility] Address [address] [place] [address] Care Team Providers Care Dag Sprayer Name Role Phone Unavailable Primary Care Provider Unavailabl e Encounter Details Date Type Department Care Team (Late st Contact Info) Description 01/26/2020 Lab Requisition [facility] [address] [facility] [place] [id number] Charlie Mahmood MD [address] [place] [address] Social History Tobacco Use Types Packs/Day Years Used Date Smoking Tobacco: Never Assessed Sex and Gender Information Value Date Recorded Sex Assigned at Not on file Gender Identity Not on file Sexual Orientation Not on file documented as of this encounter Plan of Treatment Not on file documented as of this encounter Procedures Procedure Name Priority Date/Time Associated Diagnosis Comments DERMATOPATHOLOGY Routine 01/25/2020 12:0 0 AM PHOSPHORIC ACID OPERATOR documented in this encounter Results * DERMATOPATHOLOGY (01/25/2020 12:00 AM PHOSPHORIC ACID OPERATOR) Case Report Dermatopathology Report ? Case: [id number] ? Authorizing Provider: ??Charlie Mahmood MD ?Collected: ? 01/25/2020 12:00 AM ? Ordering Location: ? [facility] ?Received: ?01/26/2020 11:35 AM ? Pathologist: ? Benoit Li MD ? Specimens: ?? A) - Skin, left mid distal post thigh ? B) - Skin, below left axilla ? C) - Skin, left lat axilla ? 0 3:56 PM [facility] DERMATOPATHOLOGY [facility]ORATORY Final Diagnosis Specimen A. 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 SKIN, left lat axilla: INTRADERMAL MELANOCYTIC NEVUS (D22.62) 0 3:56 PM [facility] DERMATOPATHOLOGY [facility]ORATORY Clinical History A-C: R/O dys nevus. 0 3:56 PM [facility]ERMATOPATH[facility]Y [facility] Gross Description Specimen A: Received is one formalin filled container labeled with the patient's name and designated left mid distal post thigh. The specimen consists of a shave biopsy measuring 6y8q5cl. Jar 0. Specimen B: Received is one formalin filled container labeled with the patient's name and designated below left axilla. The specimen consists of a shave biopsy measuring 1p3i1th. Jar 0. Specimen C: Received is one formalin filled container labeled with the patient's name and designated left lat axilla. The specimen consists of a shave biopsy measuring 3t3a5ai. Jar 0. 0 3:56 PM [facility] DERMATOPATHOLOGY [facility]ORATORY Microscopic Description Specimen A. SKIN, left mid distal post thigh: There are nests of melanocytes at the dermal-epidermal junction and within the dermis. Some melanocytes are splayed between collagen bundles and are localized around adnexal structures. The epidermis is focally necrotic and covered with a scale-crust. There is fibrin at the base. Specimen B. SKIN, below left axilla: There are nests of cytologically bland melanocytes within the dermis that mature with depth. Specimen C. SKIN, left lat axilla: There are nests of cytologically bland melanocytes within the dermis that mature with depth. 0 3:56 PM [facility] DERMATOPATHOLOGY [facility]ORATORY Disclaimer An external and internal positive and negative controls are appropriate for the histochemical, immunohistochemical and immunofluorescence stain(s) in this case (if any), except where stated explicitly. The performance characteristics of the stain(s) cited in this report were developed and its performance characteristic determined by the Dermatopathology Laboratory at [facility], directed by Dr. Zhang Li. These tests need not be, and therefore are not, approved by the [place] Food and Drug Administration. The tests are used for clinical purposes. Billing Codes Specimen Charges Stain Charges 31668 04218 31494 1 1 1 0 3:56 PM PHOSPHORIC ACID OPERATOR DERMATOPATHOLOGY LABORATORY Embedded Images 0 3:56 PM [facility] DERMATOPATHOLOGY [facility]ORATORY Pathology/Cytology TISSUE SPECIMEN FROM SKIN / Unknown 01/25/2020 01/26/2020 11:35 AM PHOSPHORIC ACID OPERATOR Miscellaneous samples (specimen) TISSUE SPECIMEN FROM SKIN / Unknown 01/25/2020 01/26/2020 11:35 AM PHOSPHORIC ACID OPERATOR Miscellaneous samples (specimen) TISSUE SPECIMEN FROM SKIN / Unknown 01/25/2020 01/26/2020 11:35 AM PHOSPHORIC ACID OPERATOR Charlie Mahmood MD LAB - PATHOLOGY/CYTO LOGY ORDERABLES DERMATOPATHOLOGY LABORATORY [facility] - Department of Dermatology [facility] Medicine [address] [place] [address], [address] [phone] documented in this encounter Visit Diagnoses Not on filedocumented in this encounter
--- OUTSIDE RECORDS SUMMARY | 2024-02-26 19:22 | XMS_ITS | Clinical Summary ---
Author Organization [facility] Address [address] [place] [address] Care Team Providers Care Cash Crop Farmer Name Role Phone Unavailable Primary Care Provider Unavailabl e Source Comments [facility] [employer],non-owned Affiliates and Associated Physician Practices is amultiple site organization consisting of ambulatory clinics and hospital sitesin [place], [place] and [place]. This disclosure is being madepursuant to the Care Everywhere program and may not contain all information available regarding this patient. Last updated 17.[facility] [employer] Social History Tobacco Use Types Packs/Day Years Used Date Smoking Tobacco: Never Assessed Sex and Gender Information Value Date Recorded Sex Assigned at Not on file Gender Identity Not on file Sexual Orientation Not on file Plan of Treatment Health Maintenance Due Date Last Done Comments COLOGUARD (AGES 45-75) - COL ON CA SCREENING 1973 COLON MONITORING 1973 COLONOSCOPY - COLON CA SCREENING 1973 CT COLONOGRAPHY - COLON CA SCREENING 1973 Colorectal Cancer Screening 1973 FIT - COLON CA SCREENING 1973 FLEX SIG - COLON CA SCREENING 1973 LIPID TESTING 1973 MAMMOGRAM 1973 PAP SMEAR 1973 HIV SCREENING 1988 HEPATITIS C SCREENING 09/13/1991 DTAP/TDAP/TD VACCINES (1 - Tdap) 1992 HEPATITIS B VACCINE (1 of 3 - 19+ 3-dose series) 1992 ZOSTER VACCINE (1 of 2) 09/18/2023 COVID-19 VACCINE (1 - 2023-2 5 season) 2023 INFLUENZA VACCINE (#1) 2023 DEPRESSION SCREENING 02/17/2024 HIB VACCINE Aged Out No longer eligi ble based on patient's age to complete this topic HPV VACCINE Aged Out No longer eligi ble based on patient's age to complete this topic MENINGOCOCCAL VACCINE Aged Out No christa marilyn eligible based on patient's age to complete this topic PNEUMOCOCCAL VACCINE Aged Out No long er eligible based on patient's age to complete this topic
--- OUTSIDE RECORDS SUMMARY | 2024-02-26 19:22 | XMS_ITS | Encounter Summary ---
Author Organization [facility] Address [address] [place] [address] Care Team Providers Care Sludge Control Operator Name Role Phone Unavailable Primary Care Provider Unavailabl e Encounter Details Date Type Department Care Team (Late st Contact Info) Description 04/02/2022 Lab Requisition [facility] [address] [facility] [place] [id number] Charlie Mahmood MD [address] [place] [address] Social History Tobacco Use Types [...] Priority Date/Time Associated Diagnosis Comments DERMATOPATHOLOGY Routine 04/01/2022 12:0 0 AM PIPE LAYER documented in this encounter Results * DERMATOPATHOLOGY (04/01/2022 12:00 AM PIPE LAYER) Case Report Dermatopathology Report ? Case: [id number] ? Authorizing Provider: ??Charlie Mahmood MD ?Collected: ? 04/01/2022 12:00 AM ? Ordering Location: ? [facility] ?Received: ?04/02/2022 04:19 PM ? Pathologist: ? Alayna Kimball MD ? Specimen: ?Skin, left upper arm ? 3 1:47 PM [facility] Final Diagnosis Specimen A. 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 The specimen consists of a punch biopsy measuring 6x6x8 mm. Jar 0. 3 1:47 PM [facility] Microscopic Description Specimen A. SKIN, left upper arm: There are nests of cytologically bland melanocytes within the dermis that mature with depth, highlighted by MART-1/MelanA immunostain. The epidermis is focally necrotic and covered with a scale-crust. There is fibrin at the base. There is epidermal hyperplasia beneath which there are vascular proliferation, fibroblasts, and an edematous stroma. 3 1:47 PM [facility] Disclaimer An external and internal positive and negative controls are appropriate for the histochemical, immunohistochemical and immunofluorescence stain(s) in this case (if any), except where stated explicitly. The performance characteristics of the stain(s) cited in this report were developed and its performance characteristic determined by the Dermatopathology Laboratory at [facility], directed by Dr. Zhang Li. These tests need not be, and therefore are not, approved by the [place] Food and Drug Administration. The tests are used for clinical purposes. Billing Codes Specimen Charges Stain Charges 94348 1 45341 1 3 1:47 PM [facility]ERMAT[facility]ATH[facility]Y LABORATORY Embedded Images 3 1:47 PM [facility]ERMATOPATH[facility]Y LABORATORY Pathology/Cytolog y TISSUE SPECIMEN FROM SKIN / Unknown 04/01/2022 04/02/2022 4:19 PM PIPE LAYER Charlie Mahmood MD LAB - PATHOLOGY/CYTO LOGY ORDERABLES DERMATOPATHOLOGY LABORATORY [facility] - Department of Dermatology [facility] [address] [place] [address], [address] [phone] documented in this encounter Visit Diagnoses Not on filedocumented in this encounter
--- OUTSIDE RECORDS SUMMARY | 2024-02-26 19:22 | XMS_ITS | Continuity of Care Document ---
Author Organization [facility] Address [address] [place] [address] Phone Care Team Providers Care Corporate Quality Assurance Manager Name Role Phone Unavailable Unavailable Unavailable Advance Directives Directive Yes / No Effective Date File Name No Information Encounters Encounter Description Practice Location Reason(s) For Visit Diagnoses Date Provider Providers Copied on Encounter [facility], [address] [facility] [facility], [place], [place], [id number], tel:[phone] [facility] No Information [id number] [id number] No Information Referring Provider: LILA Youngblood, [address], [place], [address]. tel:[phone] Family History Family Member Type Diagnosis Age At Onset No Information Payers Payer name Insurance type Covered green party ID Authoriza tirodney(s) [id number] Social History Type Description Quantity Date Captured Comments Sex Female Smoking Status No Information Chief Complaint And Reason For Visit No Information History Of Present Illness Encounter Date Complaint History Of Prese nt Illness No Information Instructions Date Instruction Additional Infor mation No Information Assessments Type Assessment Date No Information
--- OUTSIDE RECORDS SUMMARY | 2024-02-26 19:22 | XMS_ITS | Encounter Summary ---
Author Organization [facility] Address [address] [place] [address]. [place], [place] [id number] [place] [address] Care Team Providers Care Cdl Dedicated Truck Driver Name Role Phone Unavailable Primary Care Provider Unavailabl e Encounter Details Date Type Department Care Team (Late st Contact Info) Description 07/16/2010 [place] [address] , Generic Conversion, Social History Tobacco Use Types Packs/Day Years Used Date Smoking Tobacco: Never Assessed Comments Unknown Sex and Gender Information Value Date Recorded Sex Assigned at Not on file Legal Sex Female 7:24 PM CDT Gender Identity Not on file Sexual Orientation Not on file documented as of this encounter Plan of Treatment Not on file documented as of this encounter Visit Diagnoses Diagnosis Excessive growth in , antepartum (HHS/HCC) Excessive growth affecting management of mother, antepartum documented in this encounter
--- OUTSIDE RECORDS SUMMARY | 2024-02-26 19:22 | XMS_ITS | Clinical Summary ---
Author Organization [facility] [address] Address [address] [facility] [address] [place] [address] Phone Care Team Providers Care Coo Name Role Phone Unavailable Primary Care Provider Unavailabl e Social History Tobacco Use Types Packs/Day Years Used Date Smoking Tobacco: Never Assessed Sex and Gender Information Value Date Recorded Sex Assigned at Not on file Gender Identity Not on file Sexual Orientation Not on file Plan of Treatment Health Maintenance Due Date Last Done Comments DTAP/TDAP/TD VACCINES (1 - Tdap) 1992 HEPATITIS B VACCINES (1 of 3 - 19+ 3-dose series) 1992 CERVICAL CANCER SCREENING 09/18/2003 BREAST CANCER SCREENING 2013 COLORECTAL SCREENING 2018 Colorectal Cancer Screening 2018 FIT-DNA Q 3 years 2018 FIT/FOBT Q 1 year 2018 Flex Sig/CT Colonography Q 5 years 2018 INFLUENZA VACCINE (#1) 2023 ZOSTER VACCINE (1 of 2) 09/18/2023 PNEUMOCOCCAL VACCINE 0-64 YEARS Aged Out No longer eligible based on patient's age to complete this topic
--- OUTSIDE RECORDS SUMMARY | 2024-02-26 19:22 | XMS_ITS | Clinical Summary ---
Author Organization [facility] Address [address] [place] [address]. [place], [place] [address] [place] [address] Care Team Providers Care Pulmonary Function Technician Name Role Phone Unavailable Primary Care Provider Unavailabl e Social History Tobacco Use Types Packs/Day Years Used Date Smoking Tobacco: Never Assessed Comments Unknown Sex and Gender Information Value Date Recorded Sex Assigned at Not on file Legal Sex Female 7:24 PM CDT Gender Identity Not on file Sexual Orientation Not on file Plan of Treatment Health Maintenance Due Date Last Done Comments Cervical Cancer Screening Pa p Smear (Age 30 to 64) Every 3 Years 1973 Colorectal Cancer Screening Colonoscopy (10 Years) 1973 Annual Physical 1976 Hepatitis C 09/18/1991 DTaP, Tdap and Td Vaccines ( 1 - Tdap) 1992 Hepatitis B Vaccines (1 of 3 - 19+ 3-dose series) 1992 Cervical Cancer Screening Pa p with HPV Testing (Age 30 to 64) Every 5 Years 09/18/2003 Cervical Cancer Screening with HPV 09/18/2003 Mammogram Screening 2013 Zoster Vaccines (1 of 2) 09/18/2023 COVID-19 Vaccine (2023-2 5 season) 2023 Influenza Adult (#1) 2023 Meningococcal Vaccine Aged Out No christa marilyn eligible based on patient's age to complete this topic Pneumococcal Vaccine: Pediat rics (0 to 5 Years) and At-Risk Patients (6 to 64 Years) Aged Out No longer eligible b ased on patient's age to complete this topic RSV Immunizations Under 20 Months Aged Out No longer eligible based on patient's age to complete this topic
--- OUTSIDE RECORDS SUMMARY | 2024-02-26 19:22 | XMS_ITS | Encounter Summary ---
Author Organization [facility] Address [address] [place] [address] Care Team Providers Care Power Press Operator Name Role Phone Unavailable Primary Care Provider Unavailabl e Reason for Referral * Outpatient Services (Routine) - Closed Specialty Diagnoses / Procedures Referred By Contac t Referred To Contact Radiology Diagnoses AMA (advanced maternal age) multigravida 35+ Procedures US OB DETAIL SINGLE GEST Destinee Pastrana MD [address]22 [address] [phone] [facility] And [address] [phone] Referral ID Status Reason Start Date Expiration Date Visits Re quested Visits Authorized [id number] Closed 10/28/2012 11/28/2013 1 1 Reason for Visit * Auth/Cert - Closed Specialty Diagnoses / Procedures Referred By Contac t Referred To Contact Radiology [facility]aternal And [facility] Charly Powell [address] [place] [phone] Referral ID Status Reason Start Date Expiration Date Visits Re quested Visits Authorized [id number] Closed 1 1 Encounter Details Date Type Department Care Team (Late st Contact Info) Description 11/18/2012 3:00 PM CDT - 11/18/2012 11:59 PM CDT Hospital Encounter [facility] Maternal and [facility] 2022 Charly Powell [address] [place] [phone] Destinee Pastrana MD 2022 [address] [place] [address] Discharge Disposition: Home or Self Care Social History Tobacco Use Types Packs/Day Years Used Date Smoking Tobacco: Never Assessed Sex and Gender Information Value Date Recorded Sex Assigned at Not on file Gender Identity Not on file Sexual Orientation Not on file documented as of this encounter Plan of Treatment Not on file documented as of this encounter Procedures Procedure Name Priority Date/Time Associated Diagnosis Comments US OB DETAIL SINGLE GEST Routine 11/18/2012 3:36 PM CDT AMA (advanced maternal age) multigravida 35+ documented in this encounter Results * US OB DETAIL SINGLE GEST (11/18/2012 3:36 PM CDT) Anatomical Region Laterality Modality Pelvis Ultrasound 11/18/2012 3:13 PM CDT Narrative 11/18/2012 4:03 PM CDT ?Comprehensive Report Pat. Name: LINSEY LA ? Study Date: ?? 11/18/2012 ??3:13pm Pat. No: ?? [id number] ? Referring MD: Mamta Pastrana MD Site: ?[facility] ? Ecg Technician: ??Dalila Salas RDMS Height: ?68 in ? , Age: ? 1975, 37 Weight: ?230 lb ?Pregnancies: ?? 4, Para 3 LMP: ? 07/02/2012 ?GA Selected: ??19w6d (LMP) GA by LMP: 19w6d ? ICD9: ? 659.63, V28.3 GA by US: ??19w6d ? CPT4: ? 55417 Hist/Ind: ??Anatomic Survey Requested ? AMA - Multigravida ? Declines Genetic Testing ? WENDY: ?04/08/2013 MEASUREMENTS & AGE ? GROWTH EVALUATION Measurement ??GA ? Range ? Source ?? % ?? 19w6d ??Ratios ----- ------- ?? BPD ??4.8 cm 20w3d (07f2q-09x9s) Hadlock ??BPD ??65% ?? FL/BPD 0.65 HC ??17.3 cm 19w6d (51d9y-12l3q) Hadlock ??HC ?? 48% ?? FL/AC ??0.21 AC ??15.0 cm 20w2d (90e9g-16g3w) Hadlock ??AC ?? 58% ?? HC/AC ??1.15 (1.06 - 1.25) FL ?? 3.1 cm 19w5d (17z4n-77h2m) Hadlock ??FL ?? 45% ?? CI ? 0.78 (0.70 - 0.86) HL ?? 3.2 cm 20w4d (36o8r-60y1h) Risa ?? HL ?? 61% BOD ??3.1 cm ? (91w7v-03g0m) Mayden ?? BOD ??37% CMAG 0.3 cm ?CMAG ? LVEN 0.6 cm ?LVEN ? CER ??1.9 cm 18w3d (15j9m-98j7e) Hill ? CER ??10% TIB ??2.7 cm ? (90j6d-24c8i) Angely ? TIB ??60% GA for sonogram 19w6d (39u5a-53z2v) ? Weight Estimate: based on (BPD,HC,AC,FL) Hadlock ?Weight: 326 gm (278-374) Hadlock ? : 0lbs, 11oz Markers for Chromosomal Abnormality: NF ?? 3.3 mm Measured FL/Expected=0.92 (Normal) Measured HL/Expected=0.97 (Normal) Heart Rate: 140 bpm Amniotic Fluid Index: 05.3cm (Deepest Pocket) Anatomy!Normal!Abnormal!Not well se!Prev. Seen!Comments Four chamber ! ?? x ??! ?! ? ! ?! Cardiac Rhyth! ?? x ??! ?! ? ! ?! Foramen Ovale! ?? x ??! ?! ? ! ?! RVOT ? ! ?? x ??! ?! ? ! ?! LVOT ? ! ?? x ??! ?! ? ! ?! Aortic Arch ??! ?? x ??! ?! ? ! ?! Ductal Arch ??! ?? x ??! ?! ? ! ?! Thoracic aort! ?? x ??! ?! ? ! ?! IVC ?! ?? x ??! ?! ? ! ?! SVC ?! ?? x ??! ?! ? ! ?! Abdominal aor! ?? x ??! ?! ? ! ?! Lungs ?! ?? x ??! ?! ? ! ?! Placenta ? ! ?? x ??! ?! ? ! ?! Nuchal Fold ??! ?? x ??! ?! ? ! ?! Calvarium ?! ?? x ??! ?! ? ! ?! Cerebellum ?? ! ?? x ??! ?! ? ! ?! Cavum Septum ! ?? x ??! ?! ? ! ?! Ventricles ?? ! ?? x ??! ?! ? ! ?! Choroid Plexu! ?? x ??! ?! ? ! ?! Cisterna Magn! ?? x ??! ?! ? ! ?! Lip ?! ?? x ??! ?! ? ! ?! Profile ?! ?? x ??! ?! ? ! ?! Nose ? ! ?? x ??! ?! ? ! ?! Palate ? ! ?? x ??! ?! ? ! ?! Chin ? ! ?? x ??! ?! ? ! ?! Stomach ?! ?? x ??! ?! ? ! ?! Diaphragm ?! ?? x ??! ?! ? ! ?! Right Kidney ! ?? x ??! ?! ? ! ?! Left Kidney ??! ?? x ??! ?! ? ! ?! Bowel ?! ?? x ??! ?! ? ! ?! Bladder ?! ?? x ??! ?! ? ! ?! Umbilical Cor! ?? x ??! ?! ? ! ?! Abdominal Wal! ?? x ??! ?! ? ! ?! PCI ?! ?? x ??! ?! ? ! ?! Cervical Spin! ?? x ??! ?! ? ! ?! Thoracic Spin! ?? x ??! ?! ? ! ?! Lumbar Spine ! ?? x ??! ?! ? ! ?! Sacral Spine ! ?? x ??! ?! ? ! ?! Left Arm ? ! ?? x ??! ?! ? ! ?! Right Arm ?! ?? x ??! ?! ? ! ?! Left hand ?! ?? x ??! ?! ? ! ?! Right hand ?? ! ?? x ??! ?! ? ! ?! Left leg ? ! ?? x ??! ?! ? ! ?! Right leg ?! ?? x ??! ?! ? ! ?! Left foot ?! ?? x ??! ?! ? ! ?! Right foot ?? ! ?? x ??! ?! ? ! ?! CLINICAL SUMMARY GA Selected is 19w6d ?? Kelsey in the breech presentation. The ??placenta appears to be anterior. The amniotic fluid level appears to be ??normal. The gender is ?? male. Declines cervical length assessment today. IMPRESSION: Viable intrauterine at 19 6/7 weeks. biometry is consistent with prior dating. . Normal anatomy, growth, placentation, and fluid. growth is normal. No structural malformations or markers of aneuploidy identified. A normal ultrasound does not exclude the possibility of chromosomal aneuploidy or structural malformations. RECOMMENDATIONS Follow up ??scan as clinically indicated. Thank you for referring ??your patient to our facility. Jeanne Donahue MD, [facility] <Electronic Signature> ??11/18/2012 04:03pm Procedure Note Jeanne Donahue MD - 11/18/2012 Comprehensive Report Pat. Name: LINSEY LA Study Date: 11/18/20123:13pm Pat. No: [id number] Referring MD: Mamta Pastrana MD Site: [facility] Ecg Technician: Dalila Salas RDMS Height: 68 in , Age: 08 1975, 37 Weight: 230 lb Pregnancies: 4, Para 3 LMP: 07/02/2012 GA Selected: 19w6d (LMP) GA by LMP: 19w6d ICD9: 659.63, V28.3 GA by US: 19w6d CPT4: 36100 Hist/Ind: Anatomic Survey Requested AMA - Multigravida Declines Genetic Testing WENDY: 04/08/2013 MEASUREMENTS & AGE GROWTH EVALUATION Measurement GA Range Source % 19w6d Ratios ----- ------- BPD 4.8 cm 20w3d (45e8i-63l3o) Hadlock BPD 65% FL/BPD 0.65 HC 17.3 cm 19w6d (22r3t-61h1t) Hadlock HC 48% FL/AC 0.21 AC 15.0 cm 20w2d (24j1s-64g2v) Hadlock AC 58% HC/AC 1.15 (1.06 -1.25) FL 3.1 cm 19w5d (55o8z-36x3k) Hadlock FL 45% CI 0.78 (0.70 -0.86) HL 3.2 cm 20w4d (92v1y-39x2w) Risa HL 61% BOD 3.1 cm (42p3t-72b9v) Mayden BOD 37% CMAG 0.3 cm CMAG LVEN 0.6 cm LVEN CER 1.9 cm 18w3d (34y7r-71u4u) Hill CER 10% TIB 2.7 cm (22h8t-00i7o) Angely TIB 60% GA for sonogram 19w6d (47i2c-15z1k) Weight Estimate: based on (BPD,HC,AC,FL) Hadlock Weight: 326 gm (278-374)Hadlock : 0lbs, 11oz Markers for Chromosomal Abnormality: NF 3.3 mm Measured FL/Expected=0.92 (Normal) Measured HL/Expected=0.97 (Normal) Heart Rate: 140 bpm Amniotic Fluid Index: 05.3cm (Deepest Pocket) Anatomy!Normal!Abnormal!Not well se!Prev. Seen!Comments Four chamber ! x ! ! ! ! Cardiac Rhyth! x ! ! ! ! Foramen Ovale! x ! ! ! ! RVOT ! x ! ! ! ! LVOT ! x ! ! ! ! Aortic Arch ! x ! ! ! ! Ductal Arch ! x ! ! ! ! Thoracic aort! x ! ! ! ! IVC ! x ! ! ! ! SVC ! x ! ! ! ! Abdominal aor! x ! ! ! ! Lungs ! x ! ! ! ! Placenta ! x ! ! ! ! Nuchal Fold ! x ! ! ! ! Calvarium ! x ! ! ! ! Cerebellum ! x ! ! ! ! Cavum Septum ! x ! ! ! ! Ventricles ! x ! ! ! ! Choroid Plexu! x ! ! ! ! Cisterna Magn! x ! ! ! ! Lip ! x ! ! ! ! Profile ! x ! ! ! ! Nose ! x ! ! ! ! Palate ! x ! ! ! ! Chin ! x ! ! ! ! Stomach ! x ! ! ! ! Diaphragm ! x ! ! ! ! Right Kidney ! x ! ! ! ! Left Kidney ! x ! ! ! ! Bowel ! x ! ! ! ! Bladder ! x ! ! ! ! Umbilical Cor! x ! ! ! ! Abdominal Wal! x ! ! ! ! PCI ! x ! ! ! ! Cervical Spin! x ! ! ! ! Thoracic Spin! x ! ! ! ! Lumbar Spine ! x ! ! ! ! Sacral Spine ! x ! ! ! ! Left Arm ! x ! ! ! ! Right Arm ! x ! ! ! ! Left hand ! x ! ! ! ! Right hand ! x ! ! ! ! Left leg ! x ! ! ! ! Right leg ! x ! ! ! ! Left foot ! x ! ! ! ! Right foot ! x ! ! ! ! CLINICAL SUMMARY GA Selected is 19w6d Kelsey in the breech presentation. The placenta appears to be anterior. The amniotic fluid level appears to be normal. The gender is male. Declines cervical length assessment today. IMPRESSION: Viable intrauterine at 19 6/7 weeks. biometry is consistent with prior dating. . Normal anatomy, growth, placentation, and fluid. growth is normal. No structural malformations or markers of aneuploidy identified. A normal ultrasound does not exclude the possibility of chromosomalaneuploidy or structural malformations. RECOMMENDATIONS Follow up scan as clinically indicated. Thank you for referring your patient to our facility. Jeanne Donahue MD, [facility] <Electronic Signature> 11/18/2012 04:03pm Destinee Pastrana MD ORDERABLES documented in this encounter Visit Diagnoses Diagnosis AMA (advanced maternal age) multigravida 35+ Elderly multigravida with antepartum condition or complication documented in this encounter
--- OUTSIDE RECORDS SUMMARY | 2024-02-26 19:22 | XMS_ITS | Patient Health Summary ---
Author Organization [facility] Address [address] [address] Care Team Providers Care Wheat Grower Name Role Phone Unavailable Primary Care Provider Unavailabl e Note from [facility],non-owned Affiliates and Associated Physician Practices is amultiple site organization consisting of ambulatory clinics and hospital sitesin [place], [place], [place] and [place]. This disclosure is being madepursuant to the Care Everywhere program and may not contain all information available regarding this patient. Last updated 17.[facility] Social History Tobacco Use Types Packs/Day Years Used Date Smoking Tobacco: Never Assessed Sex and Gender Information Value Date Recorded Sex Assigned at Not on file Gender Identity Not on file Sexual Orientation Not on file Procedures * DERMATOPATHOLOGY(Performed 04/01/2022) * DERMATOPATHOLOGY(Performed 01/25/2020) Results * DERMATOPATHOLOGY (04/01/2022 12:00 AM AMMUNITION ASSEMBLY LABORER) Only the most recent of2 resultswithin the time period is included. Case Report Dermatopathology Report ? Case: [id number] ? Authorizing Provider: ??Charlie Mahmood MD ?Collected: ? 04/01/2022 12:00 AM ? Ordering Location: ? [facility] Care DermPath Lab ?Received: ?04/02/2022 04:19 PM ? Pathologist: ? Alayna Kimball MD ? Specimen: ?Skin, left upper arm ? 3 1:47 PM [facility] DERMATOPATHOLOGY LABORATORY Final Diagnosis Specimen A. SKIN, left upper arm: INTRADERMAL MELANOCYTIC NEVUS (D22.62) EPIDERMAL NECROSIS SUGGESTIVE OF EXCORIATION (L98.499) HEALING SKIN CHANGES (L90.5) (see microscopic description) 3 1:47 PM [facility] DERMATOPATHOLOGY LABORATORY Clinical History R/O rash NOS, BCC, SCC folliculitis, Nevus, DF 3 1:47 PM [facility] DERMATOPATHOLOGY LABORATORY Gross Description Specimen A: Received is one formalin filled container labeled with the patient's name and designated left upper arm. The specimen consists of a punch biopsy measuring 6x6x8 mm. Jar 0. 3 1:47 PM [facility] DERMATOPATHOLOGY LABORATORY Microscopic Description Specimen A. SKIN, left upper arm: There are nests of cytologically bland melanocytes within the dermis that mature with depth, highlighted by MART-1/MelanA immunostain. The epidermis is focally necrotic and covered with a scale-crust. There is fibrin at the base. There is epidermal hyperplasia beneath which there are vascular proliferation, fibroblasts, and an edematous stroma. 3 1:47 PM [facility] DERMATOPATHOLOGY LABORATORY Disclaimer An external and internal positive and negative controls are appropriate for the histochemical, immunohistochemical and immunofluorescence stain(s) in this case (if any), except where stated explicitly. The performance characteristics of the stain(s) cited in this report were developed and its performance characteristic determined by the Dermatopathology Laboratory at [facility], directed by Dr. Zhang Li. These tests need not be, and therefore are not, approved by the [place] Food and Drug Administration. The tests are used for clinical purposes. Billing Codes Specimen Charges Stain Charges 44692 1 13427 1 3 1:47 PM AMMUNITION ASSEMBLY LABORER DERMATOPATHOLOGY LABORATORY Embedded Images 3 1:47 PM AMMUNITION ASSEMBLY LABORER DERMATOPATHOLOGY LABORATORY Pathology/Cytolog y TISSUE SPECIMEN FROM SKIN / Unknown 04/01/2022 04/02/2022 4:19 PM AMMUNITION ASSEMBLY LABORER Charlie Mahmood MD LAB - PATHOLOGY/CYTO LOGY ORDERABLES DERMATOPATHOLOGY LABORATORY [facility] - Department of Dermatology [facility] Medicine [address] [place] [address], [address] [phone]
== END 2024-02-20 00:58 | disposition short-term general hospital (02) ==
PROVIDERS: Emergency Provider Student in an Organized Health Care Education/Training Program; PCP Family Medicine
DX: R10.13 Epigastric pain (principal); D75.839 Thrombocytosis, unspecified; R74.01 Elevation of levels of liver transaminase levels; D25.9 Leiomyoma of uterus, unspecified; K80.50 Calculus of bile duct without cholangitis or cholecystitis without obstruction; K80.20 Calculus of gallbladder without cholecystitis without obstruction; Z20.822 Contact with and (suspected) exposure to COVID-19
CPT/HCPCS: 36415; 71045; 74177; 76705; 80053; 80143; 81001; 81025; 83690; 83735; 84484; 85025; 85610; 85730; 87637; 93005; 96374; 96375; 96376; 99285; A9270; J2270; J2405; Q9967

== ENCOUNTER 2024-03-28 01:01 | Day surgery (SDC) | payer OTHER, SELFPAY ==
--- NOTE | 2024-03-14 15:53 | SUR.PREOP ---
Report to the Outpatient Waiting Room, entrance under the green pavilion located off [facility], at time _0600_ on date _03/28/24_. Planned Procedure Time: _0730_.? Time changes happen often and if your time is changed the preop area will call you the afternoon before. - You and your visitor will be asked to self-screen and do not enter if you have any COVID symptoms. Please call surgeon if you need to reschedule. - A mask is optional within the hospital at this time. Patients may have clear liquids (water, carbonated beverages, clear teas, apple juice) until 3 hours (0430) prior to surgery with a maximum of 20 ounces. - No food from midnight until time of surgery and no smoking. This includes no chewing gum, candy or mints. - Infants may have breast milk until 4 hours before surgery, infant formula 6 hours prior to surgery. - Children will be allowed to drink immediately following surgery.? If applicable, please bring a bottle or sippy cup to assist with drinking. Juice, water, soda, and popsicles are readily available.? For infants on formula, please bring formula the day of surgery.? Pacifiers are allowed. Take only the following medications with a SIP of water on the morning of surgery: _NA_ DO NOT STOP ANY OF YOUR OTHER PRESCRIPTION MEDICATIONS PRIOR TO SURGERY EXCEPT THE FOLLOWING Medications to discontinue per physician _Vitamins_ Date to take last dose_03/25/24_ Please no make-up, nail macanese, hairspray, perfume, deodorant, or body powder the day of surgery.? No jewelry (including any body piercings) or valuables the day of surgery, leave them at home.? Please take a shower or bath the night before, or the morning of, surgery with an antibacterial soap.? Wear comfortable, loose fitting clothing.? Children are encouraged to wear pajamas. - Jewelry must be removed prior to entering the operating room.? Rings and piercings that are not removed may be cut off. - The hospital will not accept responsibility for valuables.? - Please leave all valuables, including medications, at home the day of surgery. If you are going home after surgery, a licensed reach lift truck driver must drive you home.? - NO public transportation without another adult if you receive anesthesia. - We recommend that an adult stay with you for 24 hours following discharge. - We also recommend that you do not drive, make important decision, drink alcoholic beverages, or take any drugs that were not prescribed by your health care provider for at least 24 hours after your discharge time. For Pediatric surgeries, we recommend two adults accompany the child home. Hold all vitamins and supplements for 3 days per anesthesiologist. Follow any additional instructions given to you from your surgeon. Telephone instructions given to _Joanne_and asked if any additional questions and then verbalized understanding. Patient advised to call surgeon office or pre surgery nurse liaison [phone] if any additional questions.
[2024-03-14 16:03] VITALS: BMI 30.4
--- OUTSIDE RECORDS SUMMARY | 2024-03-28 01:08 | XMS_ITS | Encounter Summary ---
Author Organization [facility] Address [address] [facility] [place] [address] Care Team Providers Care Focused Factory Manager Name Role Phone Unavailable Primary Care Provider Unavailabl e Encounter Details Date Type Department Care Team (Late st Contact Info) Description 01/26/2020 Lab Requisition [facility] DermPath Lab [address] [place] [id number] Charlie Mahmood MD [address] [place] [address] Social History Tobacco Use Types [...] Comments DERMATOPATHOLOGY Routine 01/25/2020 12:0 0 AM BRICK STACKER documented in this encounter Results * DERMATOPATHOLOGY (01/25/2020 12:00 AM BRICK STACKER) Case Report Dermatopathology Report Case: [id number] Authorizing Provider: Charlie Mahmood MD Collected: 01/25/2020 12:00 AM Ordering Location: [facility] DermPath Lab Received: 01/26/2020 11:35 AM Pathologist: Benoit Li MD Specimens: A) - Skin, left mid distal post thigh B) - Skin, below left axilla C) - Skin, left lat axilla 0 3:56 PM BRICK STACKER DERMATOPATHOLOGY LABORATORY Final Diagnosis Specimen A. 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 SKIN, left lat axilla: INTRADERMAL MELANOCYTIC NEVUS (D22.62) 0 3:56 PM [facility] DERMATOPATHOLOGY LABORATORY Clinical History A-C: R/O dys nevus. 0 3:56 PM [facility] DERMATOPATHOLOGY LABORATORY Gross Description Specimen A: Received is one formalin filled container labeled with the patient's name and designated left mid distal post thigh. The specimen consists of a shave biopsy measuring 3t6h7az. Jar 0. Specimen B: Received is one formalin filled container labeled with the patient's name and designated below left axilla. The specimen consists of a shave biopsy measuring 4u1i0az. Jar 0. Specimen C: Received is one formalin filled container labeled with the patient's name and designated left lat axilla. The specimen consists of a shave biopsy measuring 2z5q5ww. Jar 0. 0 3:56 PM [facility] DERMATOPATHOLOGY LABORATORY Microscopic Description Specimen A. [...] that mature with depth. 0 3:56 PM [facility] DERMATOPATHOLOGY LABORATORY Disclaimer An external and internal positive and negative controls are appropriate for the histochemical, immunohistochemical and immunofluorescence stain(s) in this case (if any), except where stated explicitly. The performance characteristics of the stain(s) cited in this report were developed and its performance characteristic determined by the Dermatopathology Laboratory at [facility], directed by Dr. Zhang Li. These tests need not be, and therefore are not, approved by the [place] Food and Drug Administration. The tests are used for clinical purposes. Billing Codes Specimen Charges Stain Charges 15259 08760 69697 1 1 1 0 3:56 PM BRICK STACKER DERMATOPATHOLOGY LABORATORY Embedded Images 0 3:56 PM BRICK STACKER DERMATOPATHOLOGY LABORATORY Pathology/Cytology TISSUE SPECIMEN FROM SKIN / Unknown 01/25/2020 01/26/2020 11:35 AM BRICK STACKER Miscellaneous samples (specimen) TISSUE SPECIMEN FROM SKIN / Unknown 01/25/2020 01/26/2020 11:35 AM BRICK STACKER Miscellaneous samples (specimen) TISSUE SPECIMEN FROM SKIN / Unknown 01/25/2020 01/26/2020 11:35 AM BRICK STACKER Charlie Mahmood MD LAB - PATHOLOGY/CYTO LOGY ORDERABLES DERMATOPATHOLOGY LABORATORY [facility] - Department of Dermatology [facility] Medicine [address] [place] [address], [address] [phone] documented in this encounter Visit Diagnoses Not on filedocumented in this encounter
--- OUTSIDE RECORDS SUMMARY | 2024-03-28 01:08 | XMS_ITS | Encounter Summary ---
Author Organization [facility] Address [address] [facility] [place] [address] Care Team Providers Care Matrix Plater Name Role Phone Unavailable Primary Care Provider Unavailabl e Encounter Details Date Type Department Care Team (Late st Contact Info) Description 04/02/2022 Lab Requisition [facility] DermPath Lab [address] [place] [id number] Charlie Mahmood MD [address] [place] [address] Social History Tobacco Use Types [...] Comments DERMATOPATHOLOGY Routine 04/01/2022 12:0 0 AM BINDERY SUPERVISOR documented in this encounter Results * DERMATOPATHOLOGY (04/01/2022 12:00 AM BINDERY SUPERVISOR) Case Report Dermatopathology Report Case: [id number] Authorizing Provider: Charlie Mahmood MD Collected: 04/01/2022 12:00 AM Ordering Location: [facility] DermPath Lab Received: 04/02/2022 04:19 PM Pathologist: Alayna Kimball MD Specimen: Skin, left upper arm 3 1:47 PM BINDERY SUPERVISOR DERMATOPATHOLOGY LABORATORY Final Diagnosis Specimen A. SKIN, left upper arm: INTRADERMAL MELANOCYTIC NEVUS (D22.62) EPIDERMAL NECROSIS SUGGESTIVE OF EXCORIATION (L98.499) HEALING SKIN CHANGES (L90.5) (see microscopic description) 3 1:47 PM BINDERY SUPERVISOR DERMATOPATHOLOGY LABORATORY Clinical History R/O rash NOS, BCC, SCC folliculitis, Nevus, DF 3 1:47 PM [facility] DERMATOPATHOLOGY LABORATORY Gross Description Specimen A: Received is one formalin filled container labeled with the patient's name and designated left upper arm. The specimen consists of a punch biopsy measuring 6x6x8 mm. Jar 0. 1:47 PM [facility] DERMATOPATHOLOGY LABORATORY Microscopic Description Specimen A. SKIN, left upper arm: There are nests of cytologically bland melanocytes within the dermis that mature with depth, highlighted by MART-1/MelanA immunostain. The epidermis is focally necrotic and covered with a scale-crust. There is fibrin at the base. There is epidermal hyperplasia beneath which there are vascular proliferation, fibroblasts, and an edematous stroma. 1:47 PM [facility] DERMATOPATHOLOGY LABORATORY Disclaimer An external and internal positive and negative controls are appropriate for the histochemical, immunohistochemical and immunofluorescence stain(s) in this case (if any), except where stated explicitly. The performance characteristics of the stain(s) cited in this report were developed and its performance characteristic determined by the Dermatopathology Laboratory at [facility], directed by Dr. Zhang Li. These tests need not be, and therefore are not, approved by the [place] Food and Drug Administration. The tests are used for clinical purposes. Billing Codes Specimen Charges Stain Charges 78661 1 64119 1 3 1:47 PM [facility] DERMATOPATHOLOGY LABORATORY Embedded Images 1:47 PM [facility] DERMATOPATHOLOGY LABORATORY Pathology/Cytolog y TISSUE SPECIMEN FROM SKIN / Unknown 04/01/2022 04/02/2022 4:19 PM [facility] Charlie Mahmood MD LAB - PATHOLOGY/CYTO LOGY ORDERABLES DERMATOPATHOLOGY LABORATORY [facility] - Department of Dermatology [address] [place] [address], [facility] [phone] documented in this encounter Visit Diagnoses Not on filedocumented in this encounter
--- OUTSIDE RECORDS SUMMARY | 2024-03-28 01:08 | XMS_ITS | Clinical Summary ---
Author Organization [facility] Address [address] [place] [address] Care Team Providers Care Sieve Grader Tender Name Role Phone Unavailable Primary Care Provider Unavailabl e Source Comments [facility],non-owned Affiliates and Associated Physician Practices is amultiple site organization consisting of ambulatory clinics and hospital sitesin [place], [place], [place] and [place]. This disclosure is being madepursuant to the Care Everywhere program and may not contain all information available regarding this patient. Last updated 17.[facility] Fundability Social History Tobacco Use Types Packs/Day Years [...] of 3 - 19+ 3-dose series) 1992 PNEUMOCOCCAL VACCINE 50+ (1 of 1 - PCV) 09/18/2023 ZOSTER VACCINE (1 of 2) 09/18/2023 COVID-19 VACCINE (1 - 2023-2 5 season) 2023 INFLUENZA VACCINE (#1) 2023 DEPRESSION SCREENING 02/17/2024 HIB VACCINE Aged Out No longer eligi ble based on patient's age to complete this topic HPV VACCINE Aged Out No longer eligi ble based on patient's age to complete this topic MENINGOCOCCAL (Group B) VACCINE Aged Out No longer eligible based on patient's age to complete this topic MENINGOCOCCAL VACCINE Aged Out No christa marilyn eligible based on patient's age to complete this topic PNEUMOCOCCAL VACCINE Aged Out No long er eligible based on patient's age to complete this topic
--- OUTSIDE RECORDS SUMMARY | 2024-03-28 01:08 | XMS_ITS | Referral Summary ---
Author Organization [facility] Address [address] [place] [address] Care Team Providers Care Conference Reservationist Name Role Phone Unavailable Primary Care Provider Unavailabl e Source Comments [facility],non-owned Affiliates and Associated Physician Practices is amultiple site organization consisting of ambulatory clinics and hospital sitesin [place], [place], [place] and [place]. This disclosure is being madepursuant to the Care Everywhere program and may not contain all information available regarding this patient. Last updated 17.[facility] Social History Tobacco Use Types Packs/Day Years Used Date Smoking Tobacco: Never Assessed Sex and Gender Information Value Date Recorded Sex Assigned at Not on file Gender Identity Not on file Sexual Orientation Not on file Plan of Treatment Not on file
--- OUTSIDE RECORDS SUMMARY | 2024-03-28 01:08 | XMS_ITS | Patient Health Summary ---
Author Organization [facility] Address [address] [place] [address] Care Team Providers Care Insurance Policy Clerk Name Role Phone Unavailable Primary Care Provider Unavailabl e Note from [facility],non-owned Affiliates and Associated Physician Practices is amultiple site organization consisting of ambulatory clinics and hospital sitesin [place], [place], [place] and [place]. This disclosure is being madepursuant to the Care Everywhere program and may not contain all information available regarding this patient. Last updated 17.[facility] Social History Tobacco Use Types Packs/Day Years Used Date Smoking Tobacco: Never Assessed Sex and Gender Information Value Date Recorded Sex Assigned at Not on file Gender Identity Not on file Sexual Orientation Not on file Procedures * DERMATOPATHOLOGY(Performed 04/01/2022) * DERMATOPATHOLOGY(Performed 01/25/2020) Results * DERMATOPATHOLOGY (04/01/2022 12:00 AM JUNIOR ANALYST) Only the most recent of2 resultswithin the time period is included. Case Report Dermatopathology Report Case: [id number] Authorizing Provider: Charlie Mahmood MD Collected: 04/01/2022 12:00 AM Ordering Location: [facility] DermPath Lab Received: 04/02/2022 04:19 PM Pathologist: Alayna Kimball MD Specimen: Skin, left upper arm 3 1:47 PM JUNIOR ANALYST DERMATOPATHOLOGY LABORATORY Final Diagnosis Specimen A. SKIN, left upper arm: INTRADERMAL MELANOCYTIC NEVUS (D22.62) EPIDERMAL NECROSIS SUGGESTIVE OF EXCORIATION (L98.499) HEALING SKIN CHANGES (L90.5) (see microscopic description) 3 1:47 PM JUNIOR ANALYST DERMATOPATHOLOGY LABORATORY Clinical History R/O rash NOS, BCC, SCC folliculitis, Nevus, DF 3 1:47 PM [facility] DERMATOPATHOLOGY LABORATORY Gross Description Specimen A: Received is one formalin filled container labeled with the patient's name and designated left upper arm. The specimen consists of a punch biopsy measuring 6x6x8 mm. Jar 0. 3 1:47 PM [facility] DERMATOPATHOLOGY LABORATORY Microscopic Description Specimen A. SKIN, left upper arm: There are nests of cytologically bland melanocytes within the dermis that mature with depth, highlighted by MART-1/MelanA immunostain. The epidermis is focally necrotic and covered with a scale-crust. There is fibrin at the base. There is epidermal hyperplasia beneath which there are vascular proliferation, fibroblasts, and an edematous stroma. 3 1:47 PM [facility] DERMATOPATHOLOGY LABORATORY Disclaimer An external and internal positive and negative controls are appropriate for the histochemical, immunohistochemical and immunofluorescence stain(s) in this case (if any), except where stated explicitly. The performance characteristics of the stain(s) cited in this report were developed and its performance characteristic determined by the Dermatopathology Laboratory at [facility], directed by Dr. Zhang Li. These tests need not be, and therefore are not, approved by the [place] Food and Drug Administration. The tests are used for clinical purposes. Billing Codes Specimen Charges Stain Charges 09865 1 [id number] 1 3 1:47 PM [facility] DERMATOPATHOLOGY LABORATORY Embedded Images 3 1:47 PM [facility] DERMATOPATHOLOGY LABORATORY Pathology/Cytolog y TISSUE SPECIMEN FROM SKIN / Unknown 04/01/2022 04/02/2022 4:19 PM [facility] Charlie Mahmood MD LAB - PATHOLOGY/CYTO LOGY ORDERABLES DERMATOPATHOLOGY LABORATORY [facility] - Department of Dermatology [address], [address] [phone]
--- OUTSIDE RECORDS SUMMARY | 2024-03-28 01:09 | XMS_ITS | Clinical Summary ---
Author Organization [facility] Address [address] [place] [address] Care Team Providers Care Core Shaper Name Role Phone Jonel Wilkins MD Primary Care Provider [phone] Kishor Rea MD Unavailable Allergies No known active allergies Medications oxyCODONE (ROXICODONE) 5 mg immediate release tabletIndicatio ns:Pain Take 1 tablet (5 mg total) by mouth every 4 (four) hours as needed for pain 12 tablet 5 Active Additional Information Patient not taking.Reported on 03/15/[address] (PROTONIX) 40 mg EC tabletIndicatio ns:Treatment of Non-Bleeding Gastric Disorder Take 1 tablet (40 mg total) by mouth 2 (two) times a day 5 04/24/19 25 Active azithromycin (ZITHROMAX) 250 mg tablet 1 tablet (250 mg total) 4 Active Active Problems Problem Noted Date Diagnosed Date History of biliary stent insertion 03/16/2024 Choledocholithiasis 02/20/2024 Transaminitis 02/20/2024 Common bile duct (CBD) obstruction 02/20/2024 Acute calculous cholecystitis 02/20/2024 Encounters Date Type Department Care Team Description 03/16/2024 Telephone [facility] [address] [place] [address] Medical Office Building [address], [address] [place] [address] Dalton Almanza MD GI Preprocedure 03/15/2024 10:30 AM ADJUTANT GENERAL Office Visit [facility] [address] [facility] [address] [place] [phone] Kishor Rea MD Acute calculous cholecystitis 02/23/2024 Telephone [facility] [address] [facility] Medical Office [address], [address] [place] [phone] Abbey Stoner RN Test Results 02/22/2024 1:52 PM ADJUTANT GENERAL - 02/22/2024 3:37 PM ADJUTANT GENERAL Surgery [facility] Operating Room [address] [place] [phone] Kishor Rea MD LAPAROSCOPIC CHOLECYSTECTOMY 02/22/2024 1:42 PM ADJUTANT GENERAL Anesthesia Event [facility] Operating Room [address] [place] [phone] Johnathan Mcdonald MD Waldeck, Pauline Rose, GOLF PROFESSIONAL 02/20/2024 12:04 PM ADJUTANT GENERAL - 02/20/2024 12:49 PM ADJUTANT GENERAL Surgery [facility] [address] [place] [phone] Dalton Almanza MD ENDO ENDOSCOPIC RETROGRADE CHOLANGIOPANCREATOGRAPHY WITH STENT PLACEMENT [[id number]] 02/20/2024 12:02 PM ADJUTANT GENERAL Anesthesia Event [facility] [address] [place] [phone] Gorge Healy MD Tummins, Clay B., GOLF PROFESSIONAL 02/20/2024 1:48 AM ADJUTANT GENERAL - 02/23/2024 1:21 PM ADJUTANT GENERAL Hospital Encounter [facility] [address] [place] [phone] Carl Houston DO Hammes, Amanda Jane, MD Avagyan, Juletta, MD Common bile duct (CBD) obstruction (Primary Dx); Transaminitis; Acute cholecystitis; Acute calculous cholecystitis [K80.00] Discharge Disposition: Discharge to home or self care 02/19/2024 Orders Only [facility] Hospitalists [address] [place] [phone] Carl Houston DO from Last 3 Months Immunizations Name Administration Dates Next Due Influenza, Trivalent, IM (MDV) 10/31/2013 Social History Tobacco Use Types Packs/Day Years Used Date Smoking Tobacco: Never Tobacco Cessation:Counseling Given: Not Answered [facility] Utilities Answer Date Recorded In the past 12 months has Ens[employer], gas, oil, or water [employer] threatened to shut off services in your home? No 02/22/2024 Social Connection and Isolat ion Panel [NHANES] Answer Date Recorded In a typical week, how many times do you talk on the phone with family, friends, or neighbors? Three times a week 02/22/2024 How often do you get togethe r with friends or relatives? Twice a week 02/22/2024 How often do you attend [facility] or oriental orthodox services? Never 02/22/2024 Do you belong to any clubs o r organizations such as synagogue groups, unions, fraternal or athletic groups, or school groups? Yes 02/22/2024 How often do you attend meet ings of the clubs or organizations you belong to? More than 4 times per year 02/22/2024 Are you , , di vorced, , never , or living with a partner? 02/22/2024 AUDIT-C Answer Date Recorded Q1: How often do you have a drink containing alc ohol? Monthly or less 02/22/2024 Q2: How many drinks containi ng alcohol do you have on a typical day when you are drinking? 1 or 2 02/22/2024 Q3: How often do you have si x or more drinks on one occasion? Never 02/22/2024 Overall Financial Resource Strain (CARDIA) Answe r Date Recorded How hard is it for you to pa y for the very basics like food, housing, medical care, and heating? Not hard at all 02/22/2024 Hunger Vital Sign Answer Date Recorded Within the past 12 months, y ou worried that your food would run out before you got the money to buy more. Never true 02/21/19 25 Within the past 12 months, t he food you bought just didn't last and you didn't have money to get more. Never true 02/22/2024 PRAPARE - Transportation Answer Date Re corded In the past 12 months, has l ack of transportation kept you from medical appointments or from getting medications? No 07/2024 In the past 12 months, has l ack of transportation kept you from meetings, work, or from getting things needed for daily living? No 02/22/2024 Housing Stability Vital Sign Answer El e Recorded In the last 12 months, was t here a time when you were not able to pay the mortgage or rent on time? No 02/22/2024 In the past 12 months, how m any times have you moved where you were living? 0 02/22/2024 At any time in the past 12 m ont, were you homeless or living in a detention (including now)? No 02/22/2024 Personal Safety Answer Date Recorded Have you ever been in or are you currently in a harmful physical or emotional relationship or is someone making you feel afraid or unsafe? Denies 02/22/2024 Comments No Sex and Gender Information Value Date Recorded Sex Assigned at Not on file Legal Sex Female 1:08 PM ADJUTANT GENERAL Gender Identity Female 02/21/2024 12:40 PM ADJUTANT GENERAL Sexual Orientation Not on file Obstetrics History Last Filed Vital Signs Vital Sign Reading Time Taken Comments Blood Pressure 126/89 03/15/2024 10:20 AM ADJUTANT GENERAL Pulse 81 03/15/2024 10:20 AM ADJUTANT GENERAL Temperature 36.7 C (98 F) 03/15/2024 10:20 AM ADJUTANT GENERAL Respiratory Rate 16 02/23/2024 7:35 AM ADJUTANT GENERAL Oxygen Saturation 99% 02/23/2024 7:35 AM ADJUTANT GENERAL Inhaled Oxygen Concentration - - Weight 116.1 kg (256 lb) 03/15/2024 10:20 AM ADJUTANT GENERAL Height 170.2 cm (5' 7 ) 03/15/2024 10:20 AM ADJUTANT GENERAL Body Mass Index 40.1 03/15/2024 10:20 AM ADJUTANT GENERAL Plan of Treatment Upcoming Encounters Date Type Department Care Team (Latest Contact Info) Description 04/20/2024 8:30 AM ADJUTANT GENERAL Hospital Encounter [facility] [address] [place] [address] Dalton Almanza MD [address] [place] [address] History of biliary stent insertion 04/20/2024 8:30 AM ADJUTANT GENERAL - 04/20/2024 9:30 AM ADJUTANT GENERAL Surgery [facility] [address] [facility] [address] [place] [address] Dalton Almanza MD [address] [place] [address] ERCP [[id number]] Health Maintenance Due Date Last Done Comments Breast Cancer Screening-Mammogram 1975 Cervical Cancer Screening 1975 Colon Cancer Screening-Colonoscopy 1975 Depression Screening 1975 Hepatitis C Screening 1975 DTaP/Tdap/Td Vaccine (1 - Tdap) 1984 Hepatitis B Screening 09/18/1991 Regular Well Visit/Exam 18-64 09/18/1991 Zoster Vaccine (1 of 2) 09/18/2023 Covid-19 Vaccine (2023-2 5 season) 2023 12/21/2020, 04/17/2020, 03/15/2020 Influenza Vaccine (#1) 2023 10/31/2013 Pneumococcal vaccine <65 Aged Out No longer eligible based on patient's age to complete this topic Medical Devices Implanted Type Area Wrapper Layer And Examiner Soft Work Device Identifier Shelf Expiration Date Model / Serial / Lot [employer] 10fr 5cm Biliary Stent [id number] - [id number] Implanted:Qty: 1 on 02/20/2024 by Dalton Almanza MD at [facility] Stent N/A: Bile Duct [employer] 11/03/2025 [id number] / / [id number] Procedures Procedure Name Priority Date/Time Associated Diagnosis Comments EGFR Routine 02/23/2024 6:15 AM ADJUTANT GENERAL COMPREHENSIVE METABOLIC PANEL Routine 6:15 AM ADJUTANT GENERAL CBC WITHOUT DIFFERENTIAL Routine 025 6:15 AM ADJUTANT GENERAL OR AN PROCEDURE PLACEHOLDER Routine 07/2024 2:07 PM ADJUTANT GENERAL OR AN ELECTIVE ENDOTRACHEAL AIRWAY Routine 02/22/2024 2:07 PM ADJUTANT GENERAL SURGICAL PATHOLOGY Routine 02/22/2024 2:06 PM ADJUTANT GENERAL Acute cholecystitis LAPAROSCOPIC CHOLECYSTECTOMY 07/2024 1:43 PM ADJUTANT GENERAL pain POCT HCG, URINE Routine 02/22/2024 11:54 AM ADJUTANT GENERAL HEPATIC FUNCTION PANEL Routine 8:13 PM ADJUTANT GENERAL LIPASE Routine 02/21/2024 8:13 PM ADJUTANT GENERAL EGFR Routine 02/20/2024 5:04 PM ADJUTANT GENERAL COMPREHENSIVE METABOLIC PANEL Routine 5:04 PM ADJUTANT GENERAL ERCP IP Routine 02/20/2024 12:23 PM ADJUTANT GENERAL Common bile duct (CBD) obstruction Transaminitis ERCP IP Routine 02/20/2024 12:23 PM ADJUTANT GENERAL Common bile duct (CBD) obstruction Transaminitis ERCP IP Routine 02/20/2024 12:21 PM ADJUTANT GENERAL SURGICAL PATHOLOGY Routine 02/20/2024 12:18 PM ADJUTANT GENERAL Common bile duct (CBD) obstruction Transaminitis ENDO ADD ON ESOPHAGOGASTRODUODENOSCOPY BIOPSY 02/20/2024 12:03 PM ADJUTANT GENERAL Common bile duct (CBD) obstruction Transaminitis ERCP 02/20/2024 11:53 AM ADJUTANT GENERAL EGFR Routine 02/20/2024 7:10 AM ADJUTANT GENERAL DIFFERENTIAL AUTO Routine 02/20/2024 7:10 AM ADJUTANT GENERAL COMPREHENSIVE METABOLIC PANEL Routine 7:10 AM ADJUTANT GENERAL CBC WITH AUTO DIFFERENTIAL Routine 02/19 7:10 AM ADJUTANT GENERAL from Last 3 Months Results * eGFR (02/23/2024 6:15 AM ADJUTANT GENERAL) Pathologist [facility] eGFR >90 >=60 mL/min/1. 73 m2 Comment: Interpretive Data Reference Interval Normal >/= 90 mL/min/1.73m2 Mildly decreased* 60 - 89 mL/min/1.73m2 Mildly to moderately decreased 45 - 59 mL/min/1.73m2 Moderately to severely decreased 30 - 44 mL/min/1.73m2 Severely decreased 15 - 29 mL/min/1.73m2 Kidney Failure < 15 mL/min/1.73m2 *Relative to young adult level Estimated glomerular filtration rate is determined by the 2020 CKD-EPI equation recommended by the National Kidney Foundation (A Unifying Approach to GFR Estimation: Recommendations of the NKF-ASK Task Force on Reassessing the Inclusion of Race in Diagnosing Kidney Disease, JASN 2020). The CKD-EPI equation should not be used for patients with unstable renal function and has not been validated in children and those over 70. Current interpretive data was last reviewed 2020. Blood 02/23/2024 6:15 AM ADJUTANT GENERAL 02/23/2024 7:13 AM ADJUTANT GENERAL us Kishor Rea MD LAB BLOOD ORDERABLES Final Res ult [facility] [address] Department [place] [address] * CBC without differential (02/23/2024 6:15 AM ADJUTANT GENERAL) [facility] WBC 9.0 3.8 - 9.9 K/cumm Hgb 12.8 11.9 - 15.5 g/dL [facility] Hct 39.4 35.6 - 45.5 % [facility] Plt 351 150 - 400 K/cumm [facility] MPV 9.6 9.1 - 12.3 fL [facility] RBC 4.25 3.90 - 5.20 M/cumm [facility] MCV 92.7 81.3 - 96.4 fL [facility] MCH 30.1 27.1 - 33.3 pg [facility] MCHC 32.5 32.3 - 35.7 g/dL [facility] RDW CV 12.6 11.1 - 14.9 % [facility] RDW SD 42.6 35.7 - 48.1 fL [facility] NRBC abs 0.00 0.00 - 0.01 K/cumm [facility] Blood 02/23/2024 6:15 AM ADJUTANT GENERAL 02/23/2024 7:13 AM ADJUTANT GENERAL Kishor Rea MD LAB BLOOD ORDERABLES Final Res ult [facility] [address] Department [place] [address] * (ABNORMAL) Comprehensive metabolic panel (02/23/2024 6:15 AM ADJUTANT GENERAL) Sodium 138 135 - 145 mmol/L Potassium, pl 3.4 3.3 - 4.9 mmol/L [facility] Chloride 103 97 - 110 mmol/L [facility] CO2 24 22 - 32 mmol/L [facility] Anion gap 11 2 - 15 mmol/L [facility] BUN 8 6 - 25 mg/dL [facility] Creatinine 0.62 0.60 - 1.10 mg/dL [facility] Glucose 89 70 - 199 mg/dL [facility] Comment: Interpretive Data Fasting glucose >/= 126 mg/dl is diagnostic for diabetes. Fasting is defined as no caloric intake for at least 8 hours. Fasting glucose between 100 mg/dl to 125 mg/dl is diagnostic of prediabetes. In a patient with classic symptoms of hyperglycemia or hyperglycemic crisis, a random glucose >/= 200 mg/dl is diagnostic for diabetes. In the absence of unequivocal hyperglycemia, results should be confirmed by repeat testing. The classification and Diagnosis of Diabetes Diabetes Care 2021; 46: S19-S40. Current interpretive data was last revised 2022. Calcium 8.6 8.5 - 10.3 mg/dL [facility] Bilirubin, total 0.6 0.1 - 1.2 mg/dL [facility] Protein, pl 6.7 6.5 - 8.5 g/dL [facility] Albumin 3.5 3.5 - 5.0 g/dL [facility] Alk phos 115 40 - 130 Units/L [facility] ALT 294(H) 7 - 45 Units/L [facility] AST 73(H) 10 - 45 Units/L [facility] Blood 02/23/2024 6:15 AM ADJUTANT GENERAL 02/23/2024 7:13 AM ADJUTANT GENERAL Kishor Rea MD LAB BLOOD ORDERABLES Final Res ult [facility] [address] Department [place] [address] * OR AN ELECTIVE ENDOTRACHEAL AIRWAY, OR AN PROCEDURE PLACEHOLDER (02/22/2024 2:07 PM ADJUTANT GENERAL) Narrative Violeta Willingham GOLF PROFESSIONAL - 02/22/2024 2:07 PM ADJUTANT GENERAL Violeta Willingham GOLF PROFESSIONAL 02/22/2024 2:08 PM Airway Patient location: OR Indications for airway management: anesthesia and airway protection Difficult airway: no Emergent airway documentation: Risks and benefits discussed: yes Consent obtained: yes Airway prep: Preoxygenated: yes Patient position: sniffing Spontaneous ventilation during airway: present Sedation level during airway: GA Final airway details: Final airway type: endotracheal airway Tube type: ETT ETT size: 7.0 mm Technique used for successful ETT placement: video laryngoscopy Insertion site: oral Video blade type: Renae Cormack-Lehane (video): grade I - full view of glottis Placement verified by: auscultation Airway secured with: silk tape Number of attempts: 1 us Johnathan Mcdonald MD ANESTHESIA ORDERABLES Final Resu lt * Surgical pathology (02/22/2024 2:06 PM ADJUTANT GENERAL) Tissue (Gallbladder) 02/22/2024 2:06 PM ADJUTANT GENERAL Comment:Placed in formalin a t the end of case Narrative PATHOLOGY [facility] - 02/23/2024 10:30 AM ADJUTANT GENERAL [address] [address] Tele: Ilda Caceres MD - Evaluator Note to Patients: This report may contain a detailed description of human tissue sent by a health care provider to the laboratory for pathologic evaluation. The content of this report is essential for diagnosis and may provide important critical findings. This information may be unfamiliar to patients to review without a medical professional present. It is advised that the patient review this report in the presence of a health care provider who can answer questions and explain the details. SURGICAL PATHOLOGY REPORT Patient Name: JOANNE GUILLORY Address: [address] [place] [address] Gender: F : 1975 (Age: 48) Service: Surgery Location: [place] [address], Hospital #: [id number] Patient Type: [facility] IN[facility]IENT Taken: 02/22/2024 Received 02/22/2024 Reported: 02/23/2024 Physician(s): Kishor Rea M.D. Jonel Paulo Davalos M.D. DIAGNOSIS: Gallbladder, laparoscopic cholecystectomy: - Chronic and focal acute cholecystitis with cholelithiasis [facility]/02/23/2024 10:30 Examining Pathologist: Phill Valentine MD, PhD Report Reviewed and Electronically Signed By Phill Valentine MD, PhD SPECIMEN TYPE: A: GALLBLADDER CLINICAL IMPRESSION AND HISTORY: Pain, acute cholecystitis GROSS DESCRIPTION: Received in formalin labeled JOANNE GUILLORY and gallbladder is a 7 cm in length and 3 cm in diameter gallbladder. The specimen is opened to show approximately 5 mL of bile and multiple yellow- castellon multifaceted calculi, 3.5 cm in greatest aggregate dimension. The cystic duct is obstructed. The gallbladder mucosa is granular. The specimen has a maximum wall thickness of 0.3 cm. The cystic duct margin and business center representative sections of the gallbladder are submitted in A1. hernan/02/22/2024 16:33 HERNAN ROD MICROSCOPIC DESCRIPTION: Microscopic examination supports the above captioned diagnosis. Clerical Data Follows A; 79999 REPORT IMAGES AND/OR SCANNED DOCUMENTS ONLY VIEWABLE IN PDF FORMAT The immunohistochemical test(s) cited in this report, if any, was developed and its performance characteristics determined by [facility] Pathology Department. It has not been cleared or approved by the U.S. Food and Drug Administration. The FDA has determined that such clearance or approval is not necessary. This test is used for clinical purposes. It should not be regarded as investigational or for research. [facility] is certified under the Clinical Laboratory Improvement Amendments of 1988 (CLIA) as qualified to perform high complexity testing. Immunostains were performed on formalin-fixed paraffin embedded tissue using a polymer diaminobenzidine chromogen detection system. Antibodies used may include clone SP1 (rabbit monoclonal, estrogen receptor), clone 1E2 (rabbit monoclonal progesterone receptor), Ki-67 (rabbit monoclonal, 30-9), CD117 (rabbit polyclonal, c-kit), and anti-Her-2/fausto (4B5) (rabbit monoclonal primary antibody). In the event that immunohistochemistry or special stains have been performed, attending physician has confirmed appropriateness of controls. Frozen section, operating room consultation, gross examination and dissection, and case sign out may have been performed in part or completely in the following laboratories: [facility], [address] [place] [address], [address] [place] [address]. us Kishor Rea MD LAB PATHOLOGY ORDERABLES Final Result PATHOLOGY [facility] Laboratory Receiving [address] [place] [address] * POCT hCG, urine (02/22/2024 11:54 AM ADJUTANT GENERAL) HCG, ur, POC Negative Negative Lot Number [id number] QC Backgroud Clear Acceptable QC Control Line Acceptable Urine 02/22/2024 11:5 4 AM ADJUTANT GENERAL us Kishor Rea MD POINT OF CARE TEST ORDERABLES Final Result * Lipase (02/21/2024 8:13 PM ADJUTANT GENERAL) Pathologist [facility] Lipase 33 10 - 99 Units/L Blood 02/21/2024 8:13 PM ADJUTANT GENERAL 02/21/2024 8:24 PM ADJUTANT GENERAL Result [facility] Greg Angel MD LAB BLOOD ORDERABLES Final Result Performing Organization Address [facility] Co de Phone Number [facility] [address] [facility] [address] [address] * (ABNORMAL) Hepatic function panel (02/21/2024 8:13 PM ADJUTANT GENERAL) [facility] Bilirubin, total 0.7 0.1 - 1.2 mg/dL Bilirubin, direct 0.4(H) 0.1 - 0.3 mg/dL [facility] Protein, pl 7.0 6.5 - 8.5 g/dL [facility] Albumin 4.0 3.5 - 5.0 g/dL [facility] Alk phos 140(H) 40 - 130 Units/L [facility] ALT 488(H) 7 - 45 Units/L [facility] AST 153(H) 10 - 45 Units/L [facility] Blood 02/21/2024 8:13 PM ADJUTANT GENERAL 02/21/2024 8:24 PM ADJUTANT GENERAL Result [facility] Greg Angel MD LAB BLOOD ORDERABLES Final Result Performing Organization Address [facility] Co de Phone Number [facility] [address] [facility] [address] [address] * eGFR (02/20/2024 5:04 PM ADJUTANT GENERAL) [facility] eGFR >90 >=60 mL/min/1. 73 m2 Comment: Interpretive Data Reference Interval Normal >/= 90 mL/min/1.73m2 Mildly decreased* 60 - 89 mL/min/1.73m2 Mildly to moderately decreased 45 - 59 mL/min/1.73m2 Moderately to severely decreased 30 - 44 mL/min/1.73m2 Severely decreased 15 - 29 mL/min/1.73m2 Kidney Failure < 15 mL/min/1.73m2 *Relative to young adult level Estimated glomerular filtration rate is determined by the 2020 CKD-EPI equation recommended by the National Kidney Foundation (A Unifying Approach to GFR Estimation: Recommendations of the NKF-ASK Task Force on Reassessing the Inclusion of Race in Diagnosing Kidney Disease, JASN 2020). The CKD-EPI equation should not be used for patients with unstable renal function and has not been validated in children and those over 70. Current interpretive data was last reviewed 2020. Blood 02/20/2024 5:04 PM ADJUTANT GENERAL 02/20/2024 5:36 PM ADJUTANT GENERAL us Carl Houston DO LAB BLOOD ORDERABLES Fin al Result [facility] [address] Department [place] [address] * (ABNORMAL) Comprehensive metabolic panel (02/20/2024 5:04 PM ADJUTANT GENERAL) Sodium 133(L) 135 - 145 mmol/L Potassium, pl 3.7 3.3 - 4.9 mmol/L [facility] Chloride 100 97 - 110 mmol/L [facility] CO2 20(L) 22 - 32 mmol/L [facility] Anion gap 13 2 - 15 mmol/L [facility] BUN 8 6 - 25 mg/dL [facility] Creatinine 0.63 0.60 - 1.10 mg/dL [facility] Glucose 182 70 - 199 mg/dL [facility] Comment: Interpretive Data Fasting glucose >/= 126 mg/dl is diagnostic for diabetes. Fasting is defined as no caloric intake for at least 8 hours. Fasting glucose between 100 mg/dl to 125 mg/dl is diagnostic of prediabetes. In a patient with classic symptoms of hyperglycemia or hyperglycemic crisis, a random glucose >/= 200 mg/dl is diagnostic for diabetes. In the absence of unequivocal hyperglycemia, results should be confirmed by repeat testing. The classification and Diagnosis of Diabetes Diabetes Care 2021; 46: S19-S40. Current interpretive data was last revised 2022. Calcium 9.1 8.5 - 10.3 mg/dL [facility] Bilirubin, total 1.6(H) 0.1 - 1.2 mg/dL [facility] Protein, pl 7.6 6.5 - 8.5 g/dL [facility] Albumin 4.1 3.5 - 5.0 g/dL [facility] Alk phos 170(H) 40 - 130 Units/L [facility] ALT 730(H) 7 - 45 Units/L [facility] AST 452(H) 10 - 45 Units/L [facility] Blood 02/20/2024 5:04 PM ADJUTANT GENERAL 02/20/2024 5:36 PM ADJUTANT GENERAL Dalton Almanza MD LAB BLOOD ORDERABL ES Final Result Performing Organization Address [facility]/ZIP Co de Phone Number [place] [address] Department of Laboratories [place] [phone] * [place] ERCP Biliary and Pancreatic Duct (02/20/2024 12:21 PM ADJUTANT GENERAL) Narrative RAD_PACS_[facility] - 02/20/2024 12:24 PM ADJUTANT GENERAL The images from this study are not interpreted by Radiology. Please refer to the physician's procedure / OR operative note. Dalton Almanza MD IMG FLUOROSCOPY OR OCEDURES Final Result Performing Organization Address City/[facility]/ZIP Co de Phone Number [facility] * Surgical pathology (02/20/2024 12:18 PM ADJUTANT GENERAL) Tissue (Gastric/Stomach biopsy) 02/20/2024 12:18 PM ADJUTANT GENERAL Narrative PATHOLOGY [facility] - 02/23/2024 9:48 AM ADJUTANT GENERAL [place] [address] [place], [place] [address] Tele: Ilda Caceres MD - Evaluator Note to Patients: This report may contain a detailed description of human tissue sent by a health care provider to the laboratory for pathologic evaluation. The content of this report is essential for diagnosis and may provide important critical findings. This information may be unfamiliar to patients to review without a medical professional present. It is advised that the patient review this report in the presence of a health care provider who can answer questions and explain the details. SURGICAL PATHOLOGY REPORT Patient Name: JOANNE GUILLORY Address: [address] [place] [address] Gender: F : 1975 (Age: 48) Service: Surgery Location: [place] [address], Hospital #: [id number] Patient Type: [facility] [place] Taken: 02/20/2024 Received 02/20/2024 Reported: 02/23/2024 Physician(s): Dalton Almanza M.D. DIAGNOSIS: Stomach, biopsies: - Minimal chronic gastritis - H. pylori organisms not identified smo/02/23/2024 09:48 Examining Pathologist: Kulwant Camacho M.D. Report Reviewed and Electronically Signed By Kulwant Camacho M.D. SPECIMEN TYPE: A: GASTRIC BIOPSY CLINICAL IMPRESSION AND HISTORY: Bile duct stones. Endoscopy shows normal stomach and a few nonbleeding superficial duodenal ulcers. GROSS DESCRIPTION: Received in formalin in a single container with the patient's name, JOANNE MORAES labeled gastric biopsy and contains a 0.3 x 0.2 x 0.1 cm tissue fragment. Due to the color and size of the specimen, eosin is used. The specimen is filtered and submitted entirely in cassette A1. [facility] MICROSCOPIC DESCRIPTION: Microscopic examination shows gastric mucosa with minimal chronic inflammation. There is no intestinal metaplasia. H. pylori organisms are not identified on H&E stained sections. Clerical Data Follows A; 11657 REPORT IMAGES AND/OR SCANNED DOCUMENTS ONLY VIEWABLE IN PDF FORMAT The immunohistochemical test(s) cited in this report, if any, was developed and its performance characteristics determined by [facility] Pathology Department. It has not been cleared or approved by the U.S. Food and Drug Administration. The FDA has determined that such clearance or approval is not necessary. This test is used for clinical purposes. It should not be regarded as investigational or for research. [facility] is certified under the Clinical Laboratory Improvement Amendments of 1988 (CLIA) as qualified to perform high complexity testing. Immunostains were performed on formalin-fixed paraffin embedded tissue using a polymer diaminobenzidine chromogen detection system. Antibodies used may include clone SP1 (rabbit monoclonal, estrogen receptor), clone 1E2 (rabbit monoclonal progesterone receptor), Ki-67 (rabbit monoclonal, 30-9), CD117 (rabbit polyclonal, c-kit), and anti-Her-2/fausto (4B5) (rabbit monoclonal primary antibody). In the event that immunohistochemistry or special stains have been performed, attending physician has confirmed appropriateness of controls. Frozen section, operating room consultation, gross examination and dissection, and case sign out may have been performed in part or completely in the following laboratories: [facility], [address] [place] [address], [address] [place] [address]. Dalton Almanza MD LAB PATHOLOGY JIMMY RIVERA Final Result PATHOLOGY 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 Referring MD: Carl Houston D.O. Medicines: Indomethacin 100 mg OR, Monitored Anesthesia Care Complications: No immediate complications. Estimated Blood Loss: Estimated blood loss: none. Procedure: Pre-Anesthesia Assessment: - Immediately prior to administration ofmedications, the patient was re-assessed for adequacy to receive sedatives. The benefits, risks, and alternatives to theprocedure and sedation were discussed and informed consentwas obtained. The TJF-[id number] was introduced through the mouth, and used to inject contrast into and used to inject contrast into the bile duct. The ERCP was accomplished without difficulty. The patienttolerated the procedure well. Findings: The vocational rehabilitation specialist film was normal. The esophagus was successfully intubated under direct vision without detailed examination of the pharynx,larynx, and associated structures. The upper GI tract was traversed underdirect vision without detailed examination. The examined esophagus wasnormal. The entire examined stomach was normal. Few non-bleeding superficial duodenal ulcers with no stigmata of bleeding were found in the first portion of the duodenum and in the second portion of the duodenum.The largest lesion was 6 mm in largest dimension. Biopsies were taken inthe gastric antrum through the ERCP scope with the cold forceps for histology/ H pylori. The major papilla was normal. A 0.035 inch x 260cm straight Dreamwire was passed into the biliary tree. The short-nosed traction sphincterotome was passed over the guidewire and the bileduct was then deeply cannulated. Contrast was injected. I personally interpreted the bile duct images. Ductal flow of contrast wasadequate. Image quality was adequate. Contrast extended to the entire biliary tree. The lower third of the main bile duct contained three stones,the largest of which was 6 mm in diameter. The biliary tree was otherwise normal. A 7 mm biliary sphincterotomy was made with a traction (standard) sphincterotome using ERBE electrocautery. There was no post-sphincterotomy bleeding. The biliary tree was swept with a 12 mm balloon starting at the bifurcation. Sludge was swept from the duct.All stones were removed. One 10 Fr by 5 cm stent with a single externalflap and a single internal flap was placed into the common bile duct. Bile flowed through the stent. The stent was in good position. Theendoscope was withdrawn from the patient. Impression: ERCP: - Choledocholithiasis was found. Complete removalwas accomplished by biliary sphincterotomy and balloon extraction. - One stent was placed into the common bile duct to aid drainage and healing until time ofcholecystectomy. EGD: - Normal esophagus. - Normal stomach. Biopsies taken to rule out Hpylori in setting of duodenal ulcers. - Non-bleeding duodenal ulcers with no stigmata of bleeding. Recommendation: - Repeat ERCP in 2 months to remove stent. - During your procedure a stent was placed. Thestent allows to keep the area open and allow for fluid drainage. The stent that was place is meant to beused temporarily and requires close follow up to replaceor remove. Failure to follow up in a timely manner may result in severe abdominal pain, jaundice,infection, pancreatitis or other serious complications - Observe patient's clinical course followingtoday's ERCP with therapeutic intervention. - Watch for pancreatitis, bleeding, perforation,and cholangitis. - Avoid aspirin and nonsteroidal anti-inflammatory medicines for 10 days. - Return patient to hospital ma for ongoingcare. - NPO for 2 hours, then advance to clear liquiddiet if patient stable and ok with primary team. - Aggressive IV hydration for the next 4 hours to decrease risk of worsening pancreatitis. - PPI BID for 8 weeks. - Surgery consult for consideration ofcholecystectomy. - Await pathology results. Attending Participation: I personally performed the entire procedure. Electronically signed by Dalton Almanza MD Dalton Almanza M.D. 02/20/2024 12:25:51 PM This document was signed electronically. Number of Addenda: 0 Note Initiated On: 02/20/2024 11:53 AM Scope In: Scope Out: Dalton Almanza MD ENDOSCOPY PROCEDUR ES Edited Result - Final * eGFR (02/20/2024 7:10 AM ADJUTANT GENERAL) eGFR >90 >=60 mL/min/1. 73 m2 Comment: Interpretive Data Reference Interval Normal >/= 90 mL/min/1.73m2 Mildly decreased* 60 - 89 mL/min/1.73m2 Mildly to moderately decreased 45 - 59 mL/min/1.73m2 Moderately to severely decreased 30 - 44 mL/min/1.73m2 Severely decreased 15 - 29 mL/min/1.73m2 Kidney Failure < 15 mL/min/1.73m2 *Relative to young adult level Estimated glomerular filtration rate is determined by the 2020 CKD-EPI equation recommended by the National Kidney Foundation (A Unifying Approach to GFR Estimation: Recommendations of the NKF-ASK Task Force on Reassessing the Inclusion of Race in Diagnosing Kidney Disease, JASN 202). The CKD-EPI equation should not be used for patients with unstable renal function and has not been validated in children and those over 70. Current interpretive data was last reviewed 2020. Blood 02/20/2024 7:10 AM ADJUTANT GENERAL 02/20/2024 9:22 AM ADJUTANT GENERAL us Carl Houston DO LAB BLOOD ORDERABLES Fin al Result [facility] [address] Department [place] [address] * Differential, auto (02/20/2024 7:10 AM ADJUTANT GENERAL) Neutrophil abs 2.7 1.5 - 6.5 K/cumm Imm gran abs 0.0 0.0 - 0.1 K/cumm [facility] Lymphocyte abs 1.6 0.8 - 3.3 K/cumm [facility] Monocyte abs 0.4 0.2 - 0.8 K/cumm [facility] Eosinophil abs 0.2 0.0 - 0.5 K/cumm [facility] Basophil abs 0.0 0.0 - 0.1 K/cumm [facility] Neutrophil pct 55.7 % [facility] Comment: Interpretive Data Percent cell count reference ranges are not reported, since discordance with absolute values may lead to misinterpretation of CBC data. Current Interpretive Data was last revised on 2017. Imm gran pct 0.2 % [facility] Comment: Interpretive Data Percent cell count reference ranges are not reported, since discordance with absolute values may lead to misinterpretation of CBC data. Current Interpretive Data was last revised on 2017. Lymphocyte pct 32.2 % [facility] Comment: Interpretive Data Percent cell count reference ranges are not reported, since discordance with absolute values may lead to misinterpretation of CBC data. Current Interpretive Data was last revised on 2017. Monocyte pct 7.4 % [facility] Comment: Interpretive Data Percent cell count reference ranges are not reported, since discordance with absolute values may lead to misinterpretation of CBC data. Current Interpretive Data was last revised on 2017. Eosinophil pct 3.9 % [facility] Comment: Interpretive Data Percent cell count reference ranges are not reported, since discordance with absolute values may lead to misinterpretation of CBC data. Current Interpretive Data was last revised on 2017. Basophil pct 0.6 % [facility] Comment: Interpretive Data Percent cell count reference ranges are not reported, since discordance with absolute values may lead to misinterpretation of CBC data. Current Interpretive Data was last revised on 2017. Blood 02/20/2024 7:10 AM ADJUTANT GENERAL 02/20/2024 9:23 AM ADJUTANT GENERAL us Carl Houston DO LAB BLOOD ORDERABLES Fin al Result [facility] [address] Department [place] [address] * CBC with auto differential (02/20/2024 7:10 AM ADJUTANT GENERAL) [facility] WBC 4.8 3.8 - 9.9 K/cumm Hgb 13.3 11.9 - 15.5 g/dL [facility] Hct 40.7 35.6 - 45.5 % [facility] Plt 364 150 - 400 K/cumm [facility] MPV 9.5 9.1 - 12.3 fL [facility] RBC 4.38 3.90 - 5.20 M/cumm [facility] MCV 92.9 81.3 - 96.4 fL [facility] MCH 30.4 27.1 - 33.3 pg [facility] MCHC 32.7 32.3 - 35.7 g/dL [facility] RDW CV 12.6 11.1 - 14.9 % [facility] RDW SD 43.3 35.7 - 48.1 fL [facility] NRBC abs 0.00 0.00 - 0.01 K/cumm [facility] Blood 02/20/2024 7:10 AM ADJUTANT GENERAL 02/20/2024 9:23 AM ADJUTANT GENERAL Carl Houston DO LAB BLOOD ORDERABLES Fin al Result [facility] [address] Department [place] [address] * (ABNORMAL) Comprehensive metabolic panel (02/20/2024 7:10 AM ADJUTANT GENERAL) [facility] Sodium 137 135 - 145 mmol/L Potassium, pl 3.3 3.3 - 4.9 mmol/L [facility] Chloride 104 97 - 110 mmol/L [facility] CO2 21(L) 22 - 32 mmol/L [facility] Anion gap 12 2 - 15 mmol/L [facility] BUN 8 6 - 25 mg/dL [facility] Creatinine 0.65 0.60 - 1.10 mg/dL [facility] Glucose 78 70 - 199 mg/dL [facility] Comment: Interpretive Data Fasting glucose >/= 126 mg/dl is diagnostic for diabetes. Fasting is defined as no caloric intake for at least 8 hours. Fasting glucose between 100 mg/dl to 125 mg/dl is diagnostic of prediabetes. In a patient with classic symptoms of hyperglycemia or hyperglycemic crisis, a random glucose >/= 200 mg/dl is diagnostic for diabetes. In the absence of unequivocal hyperglycemia, results should be confirmed by repeat testing. The classification and Diagnosis of Diabetes Diabetes Care 202; 46: S19-S40. Current interpretive data was last revised 2022. Calcium 8.5 8.5 - 10.3 mg/dL [facility] Bilirubin, total 3.1(H) 0.1 - 1.2 mg/dL [facility] Protein, pl 6.5 6.5 - 8.5 g/dL [facility] Albumin 3.9 3.5 - 5.0 g/dL [facility] Alk phos 141(H) 40 - 130 Units/L [facility] ALT 752(H) 7 - 45 Units/L [facility] AST 573(H) 10 - 45 Units/L [facility] Blood 02/20/2024 7:1 0 AM ADJUTANT GENERAL 02/20/2024 9:22 AM ADJUTANT GENERAL Carl Houston DO LAB BLOOD ORDERABLES Fin al Result [facility] [address] Department [place] [address] from Last 3 Months Insurance [facility] [employer] PL[employer] [facility] [employer] PL[employer] Advance Directives For more information, please contact: [phone] * Full Code (Latest Code Status on File) Date Activated Date Inactivated Comments 02/20/2024 11:29 AM 02/23/2024 5:21 PM * Full Code Date Activated Date Inactivated Comments 02/20/2024 1:49 AM 02/20/2024 11:29 AM Care Teams Core Shaper Relationship Specialty Start Date End Date Jonel Wilkins MD [address] [place] [address] PCP - General Family Medicine 02/22/24 Kishor Rea MD [address] [address] Consulting Physician General Surgery 02/23/24
--- OUTSIDE RECORDS SUMMARY | 2024-03-28 01:09 | XMS_ITS | Clinical Summary ---
Author Organization [facility] Address [address] [place] [address] Care Team Providers Care Carrier Blower Name Role Phone Unavailable Primary Care Provider [...] season) 2023 Influenza Adult (#1) 2023 Meningococcal B Vaccine Aged Out No l onger eligible based on patient's age to complete this topic Meningococcal Vaccine Aged Out No christa marilyn [...]
--- OUTSIDE RECORDS SUMMARY | 2024-03-28 01:09 | XMS_ITS | Referral Summary ---
Author Organization [facility] Address [address] [place] [address] Care Team Providers Care Police Lieutenant Patrol Name Role Phone Jonel Wilkins MD Primary Care Provider + [phone] Kishor Rea MD Unavailable [phone] Encounters Date Type Department Care Team Description 03/16/2024 Telephone [facility] Gastroenterology [address] [place] [address] Medical Office Building [address], [address] [place] [address] Dalton Almanza MD GI Preprocedure 03/15/2024 10:30 AM MILITARY PAY CLERK Office Visit [facility] Surgery [address] [facility] [address] [place] [address] Kishor Rea MD Acute calculous cholecystitis 02/23/2024 Telephone [facility] Gastroenterology [address] [place] [address] Medical Office Building [address], [address] [place] [address] Abbey Stoner RN Test Results 02/20/2024 1:48 AM MILITARY PAY CLERK - 02/23/2024 1:21 PM MILITARY PAY CLERK Hospital Encounter [facility] [address] [place] [address] Carl Houston DO Hammes, Amanda Jane, MD Avagyan, Juletta, MD Common bile duct (CBD) obstruction (Primary Dx); Transaminitis; Acute cholecystitis; Acute calculous cholecystitis [K80.00] Discharge Disposition: Discharge to home or self care 02/22/2024 1:42 PM MILITARY PAY CLERK Anesthesia Event [facility] Operating Room [address] [place] [phone] Johnathan Mcdonald MD Waldeck, Pauline Rose, GIANCARLO 02/22/2024 1:52 PM MILITARY PAY CLERK - 02/22/2024 3:37 PM MILITARY PAY CLERK Surgery [facility] Operating Room [address] [place] [phone] Kishor Rea MD LAPAROSCOPIC CHOLECYSTECTOMY 02/20/2024 12:02 PM MILITARY PAY CLERK Anesthesia Event [facility] GI Center [address] [place] [phone] Gorge Healy MD Tummins, Clay B., SOLDERER BARREL RIBS 02/20/2024 12:04 PM MILITARY PAY CLERK - 02/20/2024 12:49 PM MILITARY PAY CLERK Surgery [facility] GI Center [address] [place] [phone] Dalton Almanza MD ENDO ENDOSCOPIC RETROGRADE CHOLANGIOPANCREATOGRAPHY WITH STENT PLACEMENT [GI509] 02/19/2024 Orders Only [facility] Hospitalists [address] [place] [phone] Carl Houston DO from Last 3 Months Allergies No known active allergies Medications oxyCODONE [...] (CBD) obstruction 02/20/2024 Acute calculous cholecystitis 02/20/2024 Immunizations Name Administration Dates Next Due Influenza, Dwayne, IM (MDV) 10/31/2013 Social History Tobacco Use Types Packs/Day Years Used Date Smoking Tobacco: Never Tobacco Cessation:Counseling Given: Not Answered [facility] Utilities Answer Date Recorded In the past 12 months has th e [employer], gas, oil, or water [employer] threatened to shut off services in your home? No 02/22/2024 Social Connection and Isolat ion Panel [NHANES] Answer Date Recorded In a typical week, how many times do you talk on the phone with family, friends, or neighbors? Three times a week 02/22/2024 How often do you get togethe r with friends or relatives? Twice a week 02/22/2024 How often do you attend chur ch or voodoo services? Never 02/22/2024 Do you belong to any clubs o r organizations such as mosque groups, unions, fraternal or athletic groups, or [...] any time in the past 12 m onths, were you homeless or living in a senior living (including now)? No 02/22/2024 Personal Safety Answer Date Recorded Have you ever been in or are you currently in a harmful physical or emotional relationship or is someone making you feel afraid or unsafe? Denies 02/22/2024 Comments No Sex and Gender Information Value Date Recorded Sex Assigned at Not on file Legal Sex Female 1:08 PM MILITARY PAY CLERK Gender Identity Female 02/21/2024 12:40 PM MILITARY PAY CLERK Sexual Orientation Not on file Last Filed Vital Signs Vital Sign Reading Time Taken Comments Blood Pressure 126/89 03/15/2024 10:20 AM MILITARY PAY CLERK Pulse 81 03/15/2024 10:20 AM MILITARY PAY CLERK Temperature 36.7 C (98 F) 03/15/2024 10:20 AM MILITARY PAY CLERK Respiratory Rate 16 02/23/2024 7:35 AM MILITARY PAY CLERK Oxygen Saturation 99% 02/23/2024 7:35 AM MILITARY PAY CLERK Inhaled Oxygen Concentration - - Weight 116.1 kg (256 lb) 03/15/2024 10:20 AM MILITARY PAY CLERK Height 170.2 cm (5' 7 ) 03/15/2024 10:20 AM MILITARY PAY CLERK Body Mass Index 40.1 03/15/2024 10:20 AM MILITARY PAY CLERK Plan of Treatment Upcoming Encounters Date Type Department Care Team (Latest Contact Info) Description 04/20/2024 8:30 AM MILITARY PAY CLERK Hospital Encounter [facility] [address] [place] [address] Dalton Almanza MD [address] [place] [address] History of biliary stent insertion 04/20/2024 8:30 AM MILITARY PAY CLERK - 04/20/2024 9:30 AM MILITARY PAY CLERK Surgery [facility] [address] [place] [address] Dalton Almanza MD [address] [place] [address] ERCP [GI527] Medical Devices Implanted Type Area Hedis Coordinator Device Identifier Shelf Expiration Date Model / Serial / Lot [employer] 10fr 5cm Biliary Stent [id number] - [id number] Implanted:Qty: 1 on 02/20/2024 by Dalton Almanza MD at [facility] Stent N/A: Bile Duct [employer] 11/03/2025 [id number] / / [id number] Procedures Procedure Name Priority Date/Time Associated Diagnosis Comments EGFR Routine 02/23/2024 6:15 AM MILITARY PAY CLERK COMPREHENSIVE METABOLIC PANEL Routine 6:15 AM MILITARY PAY CLERK CBC WITHOUT DIFFERENTIAL Routine 6:15 AM MILITARY PAY CLERK WY AN PROCEDURE PLACEHOLDER Routine 07/2024 2:07 PM MILITARY PAY CLERK WY AN ELECTIVE ENDOTRACHEAL AIRWAY Routine 02/22/2024 2:07 PM MILITARY PAY CLERK SURGICAL PATHOLOGY Routine 02/22/2024 2:06 PM MILITARY PAY CLERK Acute cholecystitis LAPAROSCOPIC CHOLECYSTECTOMY 07/2024 1:43 PM MILITARY PAY CLERK pain POCT HCG, URINE Routine 02/22/2024 11:54 AM MILITARY PAY CLERK HEPATIC FUNCTION PANEL Routine 8:13 PM MILITARY PAY CLERK LIPASE Routine 02/21/2024 8:13 PM MILITARY PAY CLERK EGFR Routine 02/20/2024 5:04 PM MILITARY PAY CLERK COMPREHENSIVE METABOLIC PANEL Routine 5:04 PM MILITARY PAY CLERK ERCP IP Routine 02/20/2024 12:23 PM MILITARY PAY CLERK Common bile duct (CBD) obstruction Transaminitis ERCP IP Routine 02/20/2024 12:23 PM MILITARY PAY CLERK Common bile duct (CBD) obstruction Transaminitis ERCP IP Routine 02/20/2024 12:21 PM MILITARY PAY CLERK SURGICAL PATHOLOGY Routine 02/20/2024 12:18 PM MILITARY PAY CLERK Common bile duct (CBD) obstruction Transaminitis ENDO ADD ON ESOPHAGOGASTRODUODENOSCOPY BIOPSY 02/20/2024 12:03 PM MILITARY PAY CLERK Common bile duct (CBD) obstruction Transaminitis ERCP 02/20/2024 11:53 AM MILITARY PAY CLERK EGFR Routine 02/20/2024 7:10 AM MILITARY PAY CLERK DIFFERENTIAL AUTO Routine 02/20/2024 7:10 AM MILITARY PAY CLERK COMPREHENSIVE METABOLIC PANEL Routine 7:10 AM MILITARY PAY CLERK CBC WITH AUTO DIFFERENTIAL Routine 02/19 7:10 AM MILITARY PAY CLERK from Last 3 Months Results * eGFR (02/23/2024 6:15 AM MILITARY PAY CLERK) eGFR >90 >=60 mL/min/1. 73 m2 Comment: [...] last reviewed 2020. Blood 02/23/2024 6:15 AM MILITARY PAY CLERK 02/23/2024 7:13 AM MILITARY PAY CLERK us Kishor Rea MD LAB BLOOD ORDERABLES Final Res ult [facility] [address] [place] [address] * CBC without differential (02/23/2024 6:15 AM MILITARY PAY CLERK) WBC 9.0 3.8 - 9.9 K/cumm Hgb 12.8 11.9 - 15.5 g/dL [facility] Hct 39.4 35.6 - 45.5 % [facility] Plt 351 150 - 400 K/cumm [facility] MPV 9.6 9.1 - 12.3 fL [facility] RBC 4.25 3.90 - 5.20 M/cumm [facility] MCV 92.7 81.3 - 96.4 fL [facility] MCH 30.1 27.1 - 33.3 pg [facility] MCHC 32.5 32.3 - 35.7 g/dL [facility] RDW CV 12.6 11.1 - 14.9 % [facility] RDW SD 42.6 35.7 - 48.1 fL [facility] NRBC abs 0.00 0.00 - 0.01 K/cumm [facility] Blood 02/23/2024 6:1 5 AM MILITARY PAY CLERK 02/23/2024 7:13 AM MILITARY PAY CLERK us Kishor Rea MD LAB BLOOD ORDERABLES Final Res ult [facility] [address] Department [place] [address] * (ABNORMAL) Comprehensive metabolic panel (02/23/2024 6:15 AM MILITARY PAY CLERK) Sodium 138 135 - 145 mmol/L Potassium, pl 3.4 3.3 - 4.9 mmol/L [facility] Chloride 103 97 - 110 mmol/L [facility] CO2 24 22 - 32 mmol/L [facility] Anion gap 11 2 - 15 mmol/L [facility] BUN 8 6 - 25 mg/dL [facility] Creatinine 0.62 0.60 - 1.10 mg/dL [facility] Glucose 89 70 - 199 mg/dL [facility] Comment: Interpretive Data Fasting glucose >/= [...] 2022. Calcium 8.6 8.5 - 10.3 mg/dL [facility] Bilirubin, total 0.6 0.1 - 1.2 mg/dL [facility] Protein, pl 6.7 6.5 - 8.5 g/dL [facility] Albumin 3.5 3.5 - 5.0 g/dL [facility] Alk phos 115 40 - 130 Units/L [facility] ALT 294(H) 7 - 45 Units/L [facility] AST 73(H) 10 - 45 Units/L [facility] Blood 02/23/2024 6:15 AM MILITARY PAY CLERK 02/23/2024 7:13 AM MILITARY PAY CLERK Kishor Rea MD LAB BLOOD ORDERABLES Final Res ult [facility] [address] Department [place] [address] * WY AN ELECTIVE ENDOTRACHEAL AIRWAY, WY AN PROCEDURE PLACEHOLDER (02/22/2024 2:07 PM MILITARY PAY CLERK) Narrative Violeta Willingham CRNA - 02/22/2024 2:07 PM MILITARY PAY CLERK Violeta Willingham CRNA 02/22/2024 2:08 PM Airway Patient location: OR [...] lt * Surgical pathology (02/22/2024 2:06 PM MILITARY PAY CLERK) Tissue (Gallbladder) 02/22/2024 2:06 PM MILITARY PAY CLERK Comment:Placed in formalin a t the end of case Narrative PATHOLOGY [facility] - 02/23/2024 10:30 AM MILITARY PAY CLERK [place] [id number] [place], [place] [address] Tele: Ilda Caceres MD - Estimating Engineer Note to Patients: This report may contain [...] PATHOLOGY REPORT Patient Name: JOANNE GUILLORY Address: [address] [place] [address] Gender: F : 1975 (Age: 48) Service: Surgery Location: [place] [address], Hospital #: [id number] Patient Type: [place] IN[facility] Taken: 02/22/2024 Received 02/22/2024 Reported: 02/23/2024 Physician(s): Kishor Rea M.D. Jonel Paulo Davalos M.D. DIAGNOSIS: Gallbladder, laparoscopic cholecystectomy: - Chronic and focal acute cholecystitis with cholelithiasis dms/02/23/2024 10:30 Examining Pathologist: Phill Valentine MD, PhD [...] 0.3 cm. The cystic duct margin and auto claim representative sections of the gallbladder are submitted in A1. jxi/02/22/2024 16:33 [facility],JXI MICROSCOPIC DESCRIPTION: Microscopic examination supports the above captioned diagnosis. Clerical Data Follows A; 57974 REPORT IMAGES AND/OR SCANNED DOCUMENTS ONLY VIEWABLE IN PDF FORMAT The immunohistochemical test(s) cited in this report, if any, was developed and its performance characteristics determined by [facility] Pathology Department. It has not been cleared or approved by the U.S. Food and Drug Administration. The FDA has determined that such clearance or approval is not necessary. This test is used for clinical purposes. It should not be regarded as investigational or for research. [facility] Laboratory is certified under the Clinical [...] part or completely in the following laboratories: [facility], [facility] [place] [address] [facility], [address] [place] [address]. Kishor Rea MD LAB PATHOLOGY ORDERABLES Final Result Performing Organization Address City/[facility]/ZIP Co de Phone Number PATHOLOGY [facility] Laboratory Receiving [address] [address] * POCT hCG, urine (02/22/2024 11:54 AM MILITARY PAY CLERK) Pathologist [facility] HCG, ur, POC Negative Negative Lot Number [id number] QC Backgroud Clear Acceptable QC Control Line Acceptable Urine 02/22/2024 11:5 4 AM MILITARY PAY CLERK Kishor Rea MD POINT OF CARE TEST ORDERABLES Final Result * Lipase (02/21/2024 8:13 PM MILITARY PAY CLERK) [facility] Lipase 33 10 - 99 Units/L Blood 02/21/2024 8:13 PM MILITARY PAY CLERK 02/21/2024 8:24 PM MILITARY PAY CLERK Alejandro Angel MD LAB BLOOD ORDERABLES Final Result [facility] [address] Department [place] [address] * (ABNORMAL) Hepatic function panel (02/21/2024 8:13 PM MILITARY PAY CLERK) [facility] Bilirubin, total 0.7 0.1 - 1.2 mg/dL Bilirubin, direct 0.4(H) 0.1 - 0.3 mg/dL [facility] Protein, pl 7.0 6.5 - 8.5 g/dL [facility] Albumin 4.0 3.5 - 5.0 g/dL [facility] Alk phos 140(H) 40 - 130 Units/L [facility] ALT 488(H) 7 - 45 Units/L [facility] AST 153(H) 10 - 45 Units/L [facility] Blood 02/21/2024 8:13 PM MILITARY PAY CLERK 02/21/2024 8:24 PM MILITARY PAY CLERK us Alejandro Angel MD LAB BLOOD ORDERABLES Final Result [facility] [address] Department [place] [address] * eGFR (02/20/2024 5:04 PM MILITARY PAY CLERK) eGFR >90 >=60 mL/min/1. 73 m2 Comment: [...] of Race in Diagnosing Kidney Disease, JASN 2021). The CKD-EPI equation should not be used for patients with unstable renal function and has not been validated in children and those over 70. Current interpretive data was last reviewed 2020. Blood 02/20/2024 5:04 PM MILITARY PAY CLERK 02/20/2024 5:36 PM MILITARY PAY CLERK us Carl Houston DO LAB BLOOD ORDERABLES Fin al Result [facility] [address] Department [place] [address] * (ABNORMAL) Comprehensive metabolic panel (02/20/2024 5:04 PM MILITARY PAY CLERK) Sodium 133(L) 135 - 145 mmol/L Potassium, pl 3.7 3.3 - 4.9 mmol/L [facility] Chloride 100 97 - 110 mmol/L [facility] CO2 20(L) 22 - 32 mmol/L [facility] Anion gap 13 2 - 15 mmol/L [facility] BUN 8 6 - 25 mg/dL [facility] Creatinine 0.63 0.60 - 1.10 mg/dL [facility] Glucose 182 70 - 199 mg/dL [facility] Comment: Interpretive Data Fasting glucose >/= [...] 2022. Calcium 9.1 8.5 - 10.3 mg/dL [facility] Bilirubin, total 1.6(H) 0.1 - 1.2 mg/dL [facility] Protein, pl 7.6 6.5 - 8.5 g/dL [facility] Albumin 4.1 3.5 - 5.0 g/dL [facility] Alk phos 170(H) 40 - 130 Units/L [facility] ALT 730(H) 7 - 45 Units/L [facility] AST 452(H) 10 - 45 Units/L [facility] Blood 02/20/2024 5:04 PM MILITARY PAY CLERK 02/20/2024 5:36 PM MILITARY PAY CLERK Dalton Almanza MD LAB BLOOD ORDERABL ES Final Result [facility] [address] Department [place] [address] * [place] ERCP Biliary and Pancreatic Duct (02/20/2024 12:21 PM MILITARY PAY CLERK) Narrative RAD_PACS_[facility] - 02/20/2024 12:24 PM MILITARY PAY CLERK The images from this study are not interpreted by Radiology. Please refer to the physician's procedure / OR operative note. us Dalton Almanza MD IMG FLUOROSCOPY WY OCEDURES Final Result Performing Organization Address [facility]/ZIP Co de Phone Number RAD_[facility] * Surgical pathology (02/20/2024 12:18 PM MILITARY PAY CLERK) Tissue (Gastric/Stomach biopsy) 02/20/2024 12:18 PM MILITARY PAY CLERK Narrative PATHOLOGY [facility] - 02/23/2024 9:48 AM MILITARY PAY CLERK [place] [id number] [place], [place] [address] Tele: Ilda Caceres MD - Estimating Engineer Note to Patients: This report may contain [...] PATHOLOGY REPORT Patient Name: JOANNE GUILLORY Address: [address] [place] [address], [place] [address] Gender: F : 1975 (Age: 48) Service: Surgery Location: [place] [address], Hospital #: [id number] Patient Type: [place] [facility] Taken: 02/20/2024 Received 02/20/2024 Reported: 02/23/2024 Physician(s): Daltondanette Almanza M.D. DIAGNOSIS: Stomach, biopsies: - Minimal chronic gastritis - H. pylori organisms not identified 02/23/2024 09:48 Examining Pathologist: Kuwlant Camacho M.D. Report Reviewed and Electronically Signed [...] filtered and submitted entirely in cassette A1. [facility] MICROSCOPIC DESCRIPTION: Microscopic examination shows gastric mucosa with minimal chronic inflammation. There is no intestinal metaplasia. H. pylori organisms are not identified on H&E stained sections. Clerical Data Follows A; [id number] REPORT IMAGES AND/OR SCANNED DOCUMENTS ONLY VIEWABLE IN PDF FORMAT The immunohistochemical test(s) cited in this report, if any, was developed and its performance characteristics determined by [facility] Pathology Department. It has not been cleared or approved by the U.S. Food and Drug Administration. The FDA has determined that such clearance or approval is not necessary. This test is used for clinical purposes. It should not be regarded as investigational or for research. [facility] Laboratory is certified under the Clinical [...] part or completely in the following laboratories: [facility], [address] [place] [address]. [facility], [address] [place] [address]. us Dalton Almanza MD LAB PATHOLOGY JIMMY RIVERA Final Result PATHOLOGY [facility] Laboratory Receiving [address] [place] [address] * ERCP (02/20/2024 11:53 AM MILITARY PAY CLERK) Anatomical Region Laterality Modality Other Narrative Procedure Note Dalton Almanza MD - 02/20/2024 11:53 AM CST ENDOSCOPY LAB Patient Name: Joanne Guillory Procedure Date: 02/20/2024 11:53 AM Admit Type: Inpatient Room: [facility] Date of : 1975 Instrument Name: [id number] Gender: Female Note Status: Business Information Manager Override Procedure: ERCP Indications: Bile duct stone(s) Providers: Dalton Almanza M.D. Referring MD: Carl Houston D.O. Medicines: Indomethacin 100 mg WY, Monitored Anesthesia Care Complications: No immediate complications. [...] The patienttolerated the procedure well. Findings: The anodizer film was normal. The esophagus was successfully [...] 02/20/2024 11:53 AM Scope In: Scope Out: us Dalton Almanza MD ENDOSCOPY PROCEDUR ES Edited Result - Final * eGFR (02/20/2024 7:10 AM MILITARY PAY CLERK) eGFR >90 >=60 mL/min/1. 73 m2 Comment: [...] last reviewed 2020. Blood 02/20/2024 7:10 AM MILITARY PAY CLERK 02/20/2024 9:22 AM MILITARY PAY CLERK us Carl Houston DO LAB BLOOD ORDERABLES Fin al Result [facility] [address] Department [place] [address] * Differential, auto (02/20/2024 7:10 AM MILITARY PAY CLERK) Neutrophil abs 2.7 1.5 - 6.5 K/cumm Imm gran abs 0.0 0.0 - 0.1 K/cumm [facility] Lymphocyte abs 1.6 0.8 - 3.3 K/cumm [facility] Monocyte abs 0.4 0.2 - 0.8 K/cumm [facility] Eosinophil abs 0.2 0.0 - 0.5 K/cumm [facility] Basophil abs 0.0 0.0 - 0.1 K/cumm [facility] Neutrophil pct 55.7 % [facility] Comment: Interpretive Data Percent cell count reference ranges are not reported, since discordance with absolute values may lead to misinterpretation of CBC data. Current Interpretive Data was last revised on 2017. Imm gran pct 0.2 % [facility] Comment: Interpretive Data Percent cell count reference ranges are not reported, since discordance with absolute values may lead to misinterpretation of CBC data. Current Interpretive Data was last revised on 2017. Lymphocyte pct 32.2 % [facility] Comment: Interpretive Data Percent cell count reference ranges are not reported, since discordance with absolute values may lead to misinterpretation of CBC data. Current Interpretive Data was last revised on 2017. Monocyte pct 7.4 % [facility] Comment: Interpretive Data Percent cell count reference ranges are not reported, since discordance with absolute values may lead to misinterpretation of CBC data. Current Interpretive Data was last revised on 2017. Eosinophil pct 3.9 % [facility] Comment: Interpretive Data Percent cell count reference ranges are not reported, since discordance with absolute values may lead to misinterpretation of CBC data. Current Interpretive Data was last revised on 2017. Basophil pct 0.6 % [facility] Comment: Interpretive Data Percent cell count reference ranges are not reported, since discordance with absolute values may lead to misinterpretation of CBC data. Current Interpretive Data was last revised on 2017. Blood 02/20/2024 7:10 AM MILITARY PAY CLERK 02/20/2024 9:23 AM MILITARY PAY CLERK us Carl Houston DO LAB BLOOD ORDERABLES Fin al Result [facility] [address] Department [place] [address] * CBC with auto differential (02/20/2024 7:10 AM MILITARY PAY CLERK) WBC 4.8 3.8 - 9.9 K/cumm Hgb 13.3 11.9 - 15.5 g/dL [facility] Hct 40.7 35.6 - 45.5 % [facility] Plt 364 150 - 400 K/cumm [facility] MPV 9.5 9.1 - 12.3 fL [facility] RBC 4.38 3.90 - 5.20 M/cumm [facility] MCV 92.9 81.3 - 96.4 fL [facility] MCH 30.4 27.1 - 33.3 pg [facility] MCHC 32.7 32.3 - 35.7 g/dL [facility] RDW CV 12.6 11.1 - 14.9 % [facility] RDW SD 43.3 35.7 - 48.1 fL [facility] NRBC abs 0.00 0.00 - 0.01 K/cumm [facility] Blood 02/20/2024 7:10 AM MILITARY PAY CLERK 02/20/2024 9:23 AM MILITARY PAY CLERK us Carl Houston DO LAB BLOOD ORDERABLES Fin al Result [facility] [address] [place] [address] * (ABNORMAL) Comprehensive metabolic panel (02/20/2024 7:10 AM MILITARY PAY CLERK) Sodium 137 135 - 145 mmol/L Potassium, pl 3.3 3.3 - 4.9 mmol/L [facility] Chloride 104 97 - 110 mmol/L [facility] CO2 21(L) 22 - 32 mmol/L [facility] Anion gap 12 2 - 15 mmol/L [facility] BUN 8 6 - 25 mg/dL [facility] Creatinine 0.65 0.60 - 1.10 mg/dL [facility] Glucose 78 70 - 199 mg/dL [facility] Comment: Interpretive Data Fasting glucose >/= [...] 2022. Calcium 8.5 8.5 - 10.3 mg/dL [facility] Bilirubin, total 3.1(H) 0.1 - 1.2 mg/dL [facility] Protein, pl 6.5 6.5 - 8.5 g/dL [facility] Albumin 3.9 3.5 - 5.0 g/dL [facility] Alk phos 141(H) 40 - 130 Units/L [facility] ALT 752(H) 7 - 45 Units/L [facility] AST 573(H) 10 - 45 Units/L [facility] Blood 02/20/2024 7:10 AM MILITARY PAY CLERK 02/20/2024 9:22 AM MILITARY PAY CLERK us Carl Houston DO LAB BLOOD ORDERABLES Fin al Result [facility] [address] [place] [address] from Last 3 Months Insurance [facility] H[facility]/PPO Address: [facility] [address] [place] [address] [facility] Address: [facility] [address] [place] [address] Advance Directives For more information, please contact: [phone] * Full Code (Latest Code Status on File) Date Activated Date Inactivated Comments 02/20/2024 11:29 AM 02/23/2024 5:21 PM * Full Code Date Activated Date Inactivated Comments 02/20/2024 1:49 AM 02/20/2024 11:29 AM Care Teams Police Lieutenant Patrol Relationship Specialty Start Date End Date Jonel Wilkins MD [address] [address] PCP - General Family Medicine 02/22/24 Kishor Rea MD [address] [address] Consulting Physician General Surgery 02/23/24
--- OUTSIDE RECORDS SUMMARY | 2024-03-28 01:09 | XMS_ITS | Clinical Summary ---
Author Organization [employer] [address] - [address] [facility] [address] [place] [address] Phone Care Team Providers Care Hydraulic Rock Drill Operator Name Role Phone Unavailable Primary Care Provider Unavailabl e Social History Tobacco Use Types Packs/Day Years Used Date Smoking Tobacco: Never Assessed Comments Unknown Sex and Gender Information Value Date Recorded Sex Assigned at Not on file Legal Sex Female 12:59 PM CDT Gender Identity Not on file Sexual Orientation Not on file Plan of Treatment Health Maintenance Due Date Last Done Comments DTAP/TDAP/TD VACCINES (1 - Tdap) 1992 HEPATITIS B VACCINES (1 of 3 - 19+ 3-dose series) 03/1992 CERVICAL CANCER SCREENING 09/18/2003 BREAST CANCER SCREENING 2013 COLORECTAL SCREENING 2018 Colorectal Cancer Screening 2018 FIT-DNA Q 3 years 2018 FIT/FOBT Q 1 year 2018 Flex Sig/CT Colonography Q 5 years 2018 INFLUENZA VACCINE (#1) 2023 ZOSTER VACCINE (1 of 2) 09/18/2023 Insurance [facility] [id number]
--- NOTE | 2024-03-28 06:56 | WPDANESEPPF ---
Anes - Initial Pre Proc Eval Procedure: Operation Date: 03/28/24 07:30 Proposed Procedures p Hysteroscopy Dilation and Curettage - Destinee Pastrana MD Date/Time: 03/28/24 06:56 Surgeon: Destinee Pastrana MD Pre Op Diagnosis: Abnormal Uterine Bleeding Patient Data Age: 48 Gender: F Height: 1.73 m Weight: 90.72 kg Allergies Allergy/AdvReac Type Severity Reaction Status Date / Time No Known Allergies Allergy Verified 03/28/24 07:04 Home Medications ?Medication ?Instructions ?Recorded ?Confirmed ?Type pantoprazole 40 mg tablet,delayed 40 mg PO DAILY 03/14/24 03/14/24 History release Patient hx anesthesia problems: none Family hx anesthesia problems: none Results Review: All pre-operative results and documents have been reviewed as part of the pre-operative evaluation. [facility] Past Medical History Medical History (Updated 03/28/24 @ 07:20 by Destinee Pastrana MD) (normal spontaneous vaginal delivery) X4 Body mass index (BMI) of 40.1 to 44.9 in adult Surgical History Surgical History (Updated 03/28/24 @ 07:19 by Destinee Pastrana MD) History of bilateral tubal ligation Family History Family History Mother Hypertension Alzheimer's disease Thyroid activity decreased Sibling Hypertension Elevated liver enzymes Father Malignant neoplasm of prostate Other Family history of heart disease in male family member before age 55 Social History Social History Smoking status: Never smoker Second hand tobacco smoke exposure: No Alcohol intake: current Drinks per week: 1 Alcohol use details: OCCASIONAL Substance use: never Substance use type: does not use Do You Feel Safe in your Home?: Yes Lack of Transportation: No Lack of Food: Never True Current Housing: I Have Housing Concerned About Future Housing: No Difficulty Paying Gas/Electric Bills: No Difficulty Paying for Meds: No Currently Unemployed: No Education: Master's Degree or Higher Difficulty w/ Childcare or Family Care: No Living arrangements: with family Additional living arrangements comments: and children Occupation/Education: occupation 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 Gender identity (if verbalized by the patient): Female Spiritual care concerns: No Anes - Eval Final PreProcedure Day of Procedure 03/28/24 06:56 Patient weight: obese Lungs: normal air movement Airway: Mallampati scale class II Last oral intake: >/= 8 hours ASA classification: II Emergent: no Anesthetic plan: proceed Anesthesia type and monitoring: general GIVS and standard monitoring Results Review: All pre-operative results and documents have been reviewed as part of the pre-operative evaluation. BMI 30, pt denies treatement for hyperlipidemia. States that she can walk outdoors, brisk pace, no or sob. Informed Consent: The patient's anesthetic plan and its attendant risks and benefits were discussed with the patient/family/POA. Questions were solicited and answers provided to the satisfaction of the patient/family/POA.
--- NOTE | 2024-03-28 06:58 | WPDANESEPPF ---
Anes - Initial Pre Proc Eval Procedure: Operation Date: 03/28/24 07:30 Proposed Procedures p Hysteroscopy Dilation and Curettage - Destinee Pastrana MD Date/Time: 03/28/24 06:58 Surgeon: Destinee Pastrana MD Pre Op Diagnosis: Abnormal Uterine Bleeding Patient Data Age: 48 Gender: F Height: 1.73 m Weight: 90.72 kg Allergies Allergy/AdvReac Type Severity Reaction Status Date / Time No Known Allergies Allergy Verified 03/14/24 16:05 Home Medications ?Medication ?Instructions ?Recorded ?Confirmed ?Type pantoprazole 40 mg tablet,delayed 40 mg PO DAILY 03/14/24 03/14/24 History release Patient hx anesthesia problems: none Family hx anesthesia problems: none Results Review: All pre-operative results and documents have been reviewed as part of the pre-operative evaluation. [facility] Past Medical History Medical History Body mass index (BMI) of 40.1 to 44.9 in adult Family History Family History Mother Hypertension Alzheimer's disease Thyroid activity decreased Sibling Hypertension Elevated liver enzymes Father Malignant neoplasm of prostate Other Family history of heart disease in male family member before age 55 Social History Social History Smoking status: Never smoker Second hand tobacco smoke exposure: No Alcohol intake: current Drinks per week: 1 Alcohol use details: OCCASIONAL Substance use: never Substance use type: does not use Do You Feel Safe in your Home?: Yes Lack of Transportation: No Lack of Food: Never True Current Housing: I Have Housing Concerned About Future Housing: No Difficulty Paying Gas/Electric Bills: No Difficulty Paying for Meds: No Currently Unemployed: No Education: Master's Degree or Higher Difficulty w/ Childcare or Family Care: No Living arrangements: with family Additional living arrangements comments: and children Occupation/Education: occupation 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 Gender identity (if verbalized by the patient): Female Spiritual care concerns: No Anes - Eval Final PreProcedure Day of Procedure 03/28/24 06:58 Patient weight: obese Lungs: normal air movement Airway: Mallampati scale class II Neurological: alert and oriented Last oral intake: >/= 8 hours ASA classification: II Emergent: no Anesthetic plan: proceed Anesthesia type and monitoring: general GIVS and standard monitoring Results Review: All pre-operative results and documents have been reviewed as part of the pre-operative evaluation. Informed Consent: The patient's anesthetic plan and its attendant risks and benefits were discussed with the patient/family/POA. Questions were solicited and answers provided to the satisfaction of the patient/family/POA.
[2024-03-28 07:05] VITALS: BP 124/83; PULSE 80; TEMP 36.9; O2SAT 96; BMI 39.2
[2024-03-28 07:07] LABS: BEDSIDEPREGUCG Negative (Negative)
[2024-03-28] MEDS: ACETAMINOPHEN 500 MG TABLET 1000 MG PO (07:09)
--- NOTE | 2024-03-28 07:18 | WPDHPUPDATE1 ---
History and Physical Update Update Date/Time: 03/28/24 07:18 History and Physical has been reviewed, including an updated exam of the patient. There are NO changes in the patient's condition. Risks, benefits, and alternatives have been discussed and questions answered. Patient agrees to proceed with procedure.
--- NOTE | 2024-03-28 07:18 | PM.HPGS ---
History of Present Illness History of Present Illness Consent: Risks, benefits, and alternatives have been discussed and questions answered. Patient agrees to proceed with procedure. Chief complaint: Abnormal Uterine Bleeding Narrative: Joanne La is a 48 year old female with recent onset of abnormal bleeding. Cycles have been closer together and prolonged. It was recommended to undergo D&C hysteroscopy to further evaluate. Risks of infection, bleeding, perforation, and possible pathology are reviewed. Patient voices understanding and agrees to proceed. Review of Systems Review of Systems: not repeated day of surgery; patient states no changes in status PMFSH Past Medical History Medical History (Updated 03/28/24 @ 07:20 by Destinee Pastrana MD) (normal spontaneous vaginal delivery) X4 Body mass index (BMI) of 40.1 to 44.9 in adult Surgical History Surgical History (Updated 03/28/24 @ 07:19 by Destinee Pastrana MD) History of bilateral tubal ligation Family History Family History Mother Hypertension Alzheimer's disease Thyroid activity decreased Sibling Hypertension Elevated liver enzymes Father Malignant neoplasm of prostate Other Family history of heart disease in male family member before age 55 Social History Social History Smoking status: Never smoker Second hand tobacco smoke exposure: No Alcohol intake: current Drinks per week: 1 Alcohol use details: OCCASIONAL Substance use: never Substance use type: does not use Do You Feel Safe in your Home?: Yes Lack of Transportation: No Lack of Food: Never True Current Housing: I Have Housing Concerned About Future Housing: No Difficulty Paying Gas/Electric Bills: No Difficulty Paying for Meds: No Currently Unemployed: No Education: Master's Degree or Higher Difficulty w/ Childcare or Family Care: No Living arrangements: with family Additional living arrangements comments: and children Occupation/Education: occupation 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 Gender identity (if verbalized by the patient): Female Spiritual care concerns: No Meds Home Medications and Allergies Home Medications ?Medication ?Instructions ?Recorded ?Confirmed ?Type pantoprazole 40 mg tablet,delayed 40 mg PO DAILY 03/14/24 03/14/24 History release Allergies Allergy/AdvReac Type Severity Reaction Status Date / Time No Known Allergies Allergy Verified 03/28/24 07:04 Vital Signs Vital Signs - 24 hr 03/28/24 07:05 Temperature 98.4 F Pulse Rate 80 Blood Pressure 124/83 Pulse Oximetry 96 Oxygen Delivery Room Air Exam Const: General: healthy appearing and alert Orientation/consciousness: patient oriented x3 Resp: Effort & Inspection: normal respiratory effort GI: GI Palp: Yes Soft to palpation, No Tenderness to palpation present (GI) and No Palpable mass present : External Female Exam: normal external appearance Speculum Exam - Vagina: normal appearance of the vagina and normal vaginal discharge Speculum Exam - Cervix: normal appearance of the cervix Bimanual exam- vagina & uterus: uterine size normal and consistency normal Bimanual Exam- Adnexa, other: normal adnexae and No adnexal tenderness Neuro: General: patient oriented x3 Assessment and Plan Assessment and plan (1) Menorrhagia: Code(s): N92.0 - Excessive and frequent menstruation with regular cycle Status: Acute Assessment and Plan: Plan to proceed D&C hysteroscopy
[2024-03-28] MEDS: LACTATED RINGERS 1,000 ML 30 ML IV CONT (07:28)
[2024-03-28 07:53] VITALS: BP 123/69; PULSE 81; RESP 14; O2SAT 98
[2024-03-28 08:20] VITALS: BP 115/79; PULSE 72
[2024-03-28] MEDS: oxyCODONE HCL (*CRX) 5 MG TAB IR PO (08:35)
--- NOTE | 2024-03-28 08:49 | W.PM.PROC2 ---
Procedure Note - Detailed Date of Procedure 03/28/24 Pre-op Diagnosis Abnormal Uterine Bleeding Post-op Diagnosis Same Procedure Performed D&C hysteroscopy Surgeon Destinee Pastrana MD Anesthesia MAC Findings Uterus sounds to 10cm and appears grossly. There was a large cervical polyp. Description of Procedure The bivalve speculum was placed in the vagina and the cervix was noted to have a large cervical polyp. This was grasped with a ring forcep and removed. The cervix was then grasped on the anterior lip with a tenaculum and the uterus sounded to 10cm. The hysteroscope was placed and with no abnormalities it was removed. The sharp curette is used to curette the endometrium until a good uterine cry was noted in all areas. All instruments are removed. Sponge, needle, and instrument counts are correct per the OR staff. The patient was awakened from anesthesia and taken to recovery in stable condition Estimated Blood Loss 5 Drains No Packing No Pathology Yes (Endometrial curettings; cervical polyp) Complications No immediate complications Condition Stable Disposition PACU
[2024-03-28 08:50] VITALS: BP 121/89; PULSE 63
== END 2024-03-28 09:11 | disposition home or self-care (01) ==
PROVIDERS: PCP Family Medicine; Visit Provider Obstetrics & Gynecology Gynecology
PROC: 0U5B8ZZ Destruction of Endometrium, Via Natural or Artificial Opening Endoscopic (ICD-10-PCS; CPT 58563; principal; 2024-03-28 07:30)
DX: N84.1 Polyp of cervix uteri (principal); E66.9 Obesity, unspecified; Z68.39 Body mass index [BMI] 39.0-39.9, adult; Z98.890 Other specified postprocedural states; Z98.51 Tubal ligation status; Z80.42 Family history of malignant neoplasm of prostate; Z82.49 Family history of ischemic heart disease and other diseases of the circulatory system
CPT/HCPCS: 58558; 88305; A9270; J1100; J2003; J2250; J2405; J2704; J3010; J7120